=== PATIENT | female | born 1950 | race Caucasian/White ===

== ENCOUNTER 2018-12-08 12:52 | Emergency (ER) | payer MEDICARE, MEDICAID ==
[2018-12-08] MEDS ORDERED: Lidocaine 1% 10 ML MDV INJECT ONE (13:03)
--- NOTE | 2018-12-08 13:08 | EDM.PDOC ---
ED HPI GENERAL MEDICAL PROBLEM - General Chief Complaint: Laceration Stated Complaint: L RONQUILLO LAC Time Seen by Provider: 12/08/18 13:03 Source of Information: Reports: Patient History Limitations: Reports: No Limitations - History of Present Illness INITIAL COMMENTS - FREE TEXT/NARRATIVE: 68-year-old female presents to the ED with a deep flap laceration to the anterior aspect of her lower left anterior tib-fib. He states this occurred within the last hour while she was in a wheelchair and hit something metal in the parking lot at [facility]. She believes her tetanus toxoid is up-to-date at any rate she refused an update of tetanus toxoid. He is not diabetic. She can walk on it and is no evidence of bony injury. Onset: Today Onset Date: 12/08/18 Onset Time: 12:20 Duration: Minutes: Location: Reports: Lower Extremity, Left Quality: Reports: Ache (Distal anterior tib-fib.) Severity: Moderate Improves with: Reports: None Worsens with: Reports: Movement (Pain is made slightly worse by walking.) Context: Reports: Trauma (Blunt trauma on something sharp that caused a laceration to skin overlying the lt tib-fib.). 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) (None.) Left Lower Leg Pain Score (Numeric/FACES): 2 - Related Data Allergies Allergy/AdvReac Type Severity Reaction Status Date / Time No Known Allergies Allergy Verified 12/08/18 13:02 Home Meds: Home Meds Acetaminophen [Tylenol Arthritis Pain] 650 mg PO Q4HR PRN 09/02/15 [History] Furosemide 1 tab PO DAILY 09/02/15 [History] Lisinopril 10 mg PO DAILY 09/02/15 [History] Potassium Chloride 10 meq PO DAILY 09/02/15 [History] Acetaminophen/oxyCODONE [Percocet 325-5 MG] 2 tab PO Q4H PRN #60 tablet [Rx] Aspirin [Ecotrin] 325 mg PO BID tab.ec 09/07/15 [Rx] Cyclobenzaprine [Flexeril] 10 mg PO TID PRN #40 tablet 09/07/15 [Rx] Docusate Sodium [Colace] 100 mg PO BID cap 09/07/15 [Rx] Famotidine [Pepcid] 20 mg PO Q12H tablet 09/07/15 [Rx] Multivitamins,Therapeutic [Thera] 1 each PO WITHBREAKFAST tablet 09/07/15 [Rx] oxyCODONE 5 mg PO Q6H PRN #40 tablet 09/07/15 [Rx] Past Medical History HEENT History: Reports: Impaired Vision Other HEENT History: has dentures, wears glasses occassionally Cardiovascular History: Reports: Hypertension Other Cardiovascular History: peripheral edema 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: Musculoskeletal History: Reports: Arthritis, Back Pain, Chronic Other Musculoskeletal History: bilateral knee pain, plantar fascitis - Infectious Disease History Infectious Disease History: Reports: Chicken Pox - Past Surgical History HEENT Surgical History: Reports: Tonsillectomy Female Surgical History: Reports: D&C Other Surgical History Comment: R TKA today Social & Family History - Family History HEENT: Reports: Cataract, Macular Degeneration Other HEENT Family History: mother Cardiac: Reports: Afib, Aneurysm Other Cardiac Family History: mother A-fib, father Anuerysm Respiratory: Reports: COPD Other Respiratory Family Hisory: mother GI: Reports: None OBGYN: Reports: None Musculoskeletal: Reports: Arthritis Other Musculoskeletal Family History: mother Neurological: Reports: CVA Other Neurological Family History: father and brother Psychiatric: Reports: Depression Other Psychiatric Family History: daughter - Living Situation & Occupation Living situation: Reports: with Family ED ROS GENERAL - Review of Systems Review Of Systems: See Below Constitutional: Reports: No Symptoms HEENT: Reports: No Symptoms Respiratory: Reports: No Symptoms Cardiovascular: Reports: Blood Pressure Problem Endocrine: Reports: Fatigue GI/Abdominal: Reports: Other (GERD under good control with Pepcid.) : Reports: Frequency Musculoskeletal: Reports: Back Pain, Other (Arthritis involving neck knees hips and sometimes shoulders.) Skin: Reports: Bruising (Bruises fairly easily. Is on aspirin daily.) Neurological: Reports: No Symptoms Psychiatric: Reports: No Symptoms Hematologic/Lymphatic: Reports: No Symptoms Immunologic: Reports: No Symptoms ED EXAM, SKIN/RASH Exam: See Below Exam Limited By: No Limitations General Appearance: Alert, WD/WN, Mild Distress Eye Exam: Bilateral Eye: Normal Inspection Peripheral Pulses: 1+: Posterior Tibial (L), Posterior Tibial (R), Dorsalis Pedis (L), Dorsalis Pedis (R) Extremities: Other (Has a 5 cm laceration distal aspect left lower leg overlying the tib-fib just above the ankle crease. She has full range of motion of the ankle in terms of dorsiflexion.) Neurological: Alert, Oriented ( Mild active bleeding appreciated), CN II-XII Intact, Normal Cognition Psychiatric: Normal Affect, Normal Mood Skin: Warm, Dry, Intact, Normal Color, No Rash Location, Skin: Lower Extremity, Left (Laceration distal left tib-fib--flap laceration approximately 5 cm in length.) Associated features: Tenderness ED SKIN PROCEDURES - Laceration/Wound Repair Left Lower Anterior Distal Leg Lac/Wound length In cm: 5 Appearance: Subcutaneous, Clean Distal NVT: Neuro & Vascular Intact Anesthetic Type: Local Local Anesthesia - Lidocaine (Xylocaine): 1% Plain Local Anesthetic Volume: Other (18 mL) Skin Prep: Saline Exploration/Debridement/Repair: Wound Explored Closed with: Sutures Suture Size: 3-0 # of Sutures: 10 Suture Type: Nylon, Interrupted, Simple Course - Vital Signs Last Recorded V/S: Last Vital Signs Temp 36.7 C 12/08/18 13:08 Pulse 120 H 12/08/18 13:08 Resp 18 12/08/18 13:08 BP 200/100 H 12/08/18 13:08 Pulse Ox 92 L 12/08/18 13:08 - Orders/Labs/Meds Meds: Medications Discontinued Medications Generic Name Dose Route Start Last Admin Trade Name Damion PRN Reason Stop Dose Admin Lidocaine HCl 20 ml 12/08/18 13:03 12/08/18 13:14 Xylocaine 1% INJECT 12/08/18 13:04 20 ml ONETIME ONE Administration - Radiology Interpretation Free Text/Narrative:: 60-year-old female presents the ED with a deep 5 cm flap laceration to the distal aspect of her anterior tib-fib on the left side. She states she was bumped into well in the parking lot at [facility] and part of the wheelchair gouged her across the anterior leg causing a deep flap laceration. She believes her tetanus toxoid is up-to-date at any rate she refused an update. Wound was cleansed and then sutured under local anesthetic with 3-0 Ethilon 10 sutures. Sutures will be need to be removed in 10 days' time. Departure - Departure Time of Disposition: 13:31 Disposition: Home, Self-Care Condition: Fair Clinical Impression: Laceration of leg excluding thigh Qualifiers: Encounter type: initial encounter Laterality: left Qualified Code(s): S81.812A - Laceration without foreign body, left lower leg, initial encounter - Discharge Information *PRESCRIPTION DRUG MONITORING PROGRAM REVIEWED*: Not Applicable *COPY OF PRESCRIPTION DRUG MONITORING REPORT IN PATIENT DEON: Not Applicable Instructions: Laceration Care, Adult Referrals: PCP,None [Primary Care Provider] - Forms: ED Department Discharge Additional Instructions: Evaluation the emergency room today in regards to a 5 cm laceration to the distal aspect of your lower leg just above the ankle crease. This occurred from a sharp part of a wheelchair. Wound was cleansed and then sutured 10 with 3-0 Ethilon sutures. Wound is to be cleansed daily with soap and water. Showering is okay. Wound should not be soaked under water however until the sutures are removed. Apply topical antibiotic such as bacitracin or Polysporin once daily to the wound and cover with bandage to keep clean. Sutures are to be removed in 10-12 days time. May use Tylenol or Motrin for pain relief as needed. May elevate the leg is much as possible today and apply ice pack for 20 minutes out of every 3 hours to reduce swelling. Report to medical care if any signs of infection develop such as redness, increased swelling, increased pain, or obvious pus.
[2018-12-08 13:11] VITALS: BP 200/100
== END 2018-12-08 13:46 | disposition home or self-care (01) ==
LOC: JD.ED 12:52
DX: S81.812A Laceration without foreign body, left lower leg, initial encounter (principal); I10 Essential (primary) hypertension; M19.90 Unspecified osteoarthritis, unspecified site; Z79.82 Long term (current) use of aspirin; Z79.899 Other long term (current) drug therapy; Z98.890 Other specified postprocedural states; W26.8XXA Contact with other sharp object(s), not elsewhere classified, initial encounter
CPT/HCPCS: 12002; 99282; J2001

== ENCOUNTER 2019-01-08 06:16 | Inpatient (IN) | payer MEDICARE, MEDICAID ==
[~2019-01-08 06:16] MED LIST: Acetaminophen 325 MG Tab PO SCH; Lactated Ringers 1,000 ML IV SCH; Lidocaine 1%/Sod Bicarbonate in NS 8.4% 1 ML Syringe IDERM PRN; Pregabalin 25 MG Cap PO SCH; Sodium Chloride 0.9% 10 ML Syringe FLUSH PRN; oxyCODONE ER 10 MG TAB.ER PO SCH
[2019-01-08] MEDS ORDERED: Morphine 8 MG, EPINEPHrine 0.3 MG, Cefuroxime 750 MG, Ketorolac 30 MG, Sodium Chloride ... ONE ×15 (06:35→07:15)
[2019-01-08] MEDS ORDERED: Ketorolac 15 MG/ML SDV IVPUSH PRN (06:35)
[2019-01-08] MEDS ORDERED: Ondansetron 4 MG/2 ML SDV IVPUSH PRN (06:37)
[2019-01-08] MEDS ORDERED: Naloxone 0.4 MG/ML SDV IVPUSH PRN (06:37)
[2019-01-08] MEDS ORDERED: Bisacodyl 5 MG Tab PO PRN (06:37)
[2019-01-08] MEDS ORDERED: Magnesium Hydroxide 400 MG/5 ML Susp 30 ML Cup PO PRN (06:37)
[2019-01-08] MEDS ORDERED: Sennosides 8.6 MG Tab PO PRN (06:37)
[2019-01-08] MEDS ORDERED: Morphine 2 MG/ML Syringe IVPUSH PRN (06:37)
[2019-01-08] MEDS ORDERED: fentaNYL 100 MCG/2 ML SDV ONE ×3 (06:44→10:06)
[2019-01-08] MEDS ORDERED: Famotidine 20 MG Tab PO SCH (06:45)
[2019-01-08] MEDS ORDERED: Midazolam 1 MG/ML 2 ML SDV ONE ×2 (06:45→09:25)
[2019-01-08] MEDS ORDERED: Albuterol/Ipratropium 3.0-0.5 MG/3 ML Neb Soln NEB STA (06:53)
[2019-01-08] MEDS ORDERED: Ondansetron 4 MG/2 ML SDV IVPUSH ONE (06:55)
[2019-01-08] MEDS ORDERED: Albuterol/Ipratropium 3.0-0.5 MG/3 ML Neb Soln ONE ×2 (06:58→10:24)
[2019-01-08] MEDS ORDERED: ceFAZolin 1 GM Vial ONE ×3 (07:01→07:14)
[2019-01-08] MEDS ORDERED: Vancomycin 1 GM SDV ONE (07:01)
[2019-01-08] MEDS ORDERED: Bupivacaine 0.25% 30 ML SDV ONE (07:01)
[2019-01-08] MEDS ORDERED: Iodine/Sodium Iodide 2% Tincture 30 ML Bottle ONE (07:01)
--- NOTE | 2019-01-08 07:06 | PCM.PREANE ---
Preanesthetic Assessment - Anesthesia/Transfusion/Family Hx Anesthesia History: Prior Anesthesia Without Reaction Family History of Anesthesia Reaction: No Transfusion History: Prior Transfusion Reaction Intubation History: Unknown - Review of Systems General: No Symptoms Pulmonary: Shortness of Breath, Wheezing Cardiovascular: No Symptoms Gastrointestinal: No Symptoms Neurological: No Symptoms Other: Reports: None - Physical Assessment NPO Status Date: 01/07/19 NPO Status Time: 10:30 Blood Pressure: 180/90 Height: 1.7 m Weight: 127.006 kg ASA Class: 3 Mental Status: Alert & Oriented x3 Airway Class: Mallampati = 3 Dentition: Reports: Dentures ROM/Head Extension: Limited/Partial Lungs: Decreased Breath Sounds, Wheezing Cardiovascular: Regular Rate, Regular Rhythm - Allergies Allergies/Adverse Reactions: Allergies Allergy/AdvReac Type Severity Reaction Status Date / Time bee venom protein (honey bee) Allergy Dizziness Verified 01/07/19 11:07 - Acknowledgements Anesthesia Type Planned: Spinal Pt an Appropriate Candidate for the Planned Anesthesia: Yes Alternatives and Risks of Anesthesia Discussed w Pt/Guardian: Yes Pt/Guardian Understands and Agrees with Anesthesia Plan: Yes Additional Comments: Discussed GA LMA if spinalunsuccessful with Dr. 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: Musculoskeletal History: Reports: Arthritis, Back Pain, Chronic Other Musculoskeletal History: bilateral knee pain, plantar fascitis Neurological History: Reports: None Psychiatric History: Reports: None Endocrine/Metabolic History: Reports: Obesity/BMI 30+ Hematologic History: Reports: None Immunologic History: Reports: None Oncologic (Cancer) History: Reports: None Dermatologic History: Reports: None - Infectious Disease History Infectious Disease History: Reports: Chicken Pox - Past Surgical History Head Surgeries/Procedures: Reports: None HEENT Surgical History: Reports: Cataract Surgery, Tonsillectomy Cardiovascular Surgical History: Reports: None Respiratory Surgical History: Reports: None GI Surgical History: Reports: None Female Surgical History: Reports: D&C Male Surgical History: Reports: None Endocrine Surgical History: Reports: None Neurological Surgical History: Reports: None Musculoskeletal Surgical History: Reports: Knee Replacement Oncologic Surgical History: Reports: None Dermatological Surgical History: Reports: None - SUBSTANCE USE Smoking Status *Q: Current Every Day Smoker Recreational Drug Use History: No - HOME MEDS Home Medications: Home Meds Potassium Chloride 10 meq PO DAILY 09/02/15 [History] Acetaminophen [Tylenol Arthritis Pain] 650 mg PO BEDTIME 01/07/19 [History] Aspirin 81 mg PO DAILY 01/07/19 [History] Cholecalciferol (Vitamin D3) [Vitamin D3] 5,000 unit PO DAILY 01/07/19 [History] Cyclobenzaprine [Flexeril] 10 mg PO Q8H PRN 01/07/19 [History] Hydrochlorothiazide/Losartan [Hyzaar 50-12.5 MG] 1 tab PO DAILY 01/07/19 [ History] Hydrocodone/Acetaminophen [Hydrocodon-Acetaminophn 10-325] 1 tab PO Q8H PRN [History] Losartan/Hydrochlorothiazide [Losartan-HCTZ 50-12.5 MG] 1 tab PO DAILY 01/07/19 [History] Rosuvastatin Calcium 10 mg PO DAILY 01/07/19 [History] Vitamin B Complex 1 cap PO DAILY 01/07/19 [History] - CURRENT (IN HOUSE) MEDS Current Meds: Current Medications Acetaminophen (Tylenol) 975 mg PO ONETIME [place] Stop: 01/08/19 18:00 Hydrocodone Bitart/Acetaminophen ([place] 325-5 Mg) 1 - 2 tab PO Q4H PRN PRN Reason: Pain Bisacodyl (Dulcolax) 5 mg PO DAILY PRN PRN Reason: Constipation Morphine Sulfate 8 mg/Epinephrine HCl 0.3 mg/Cefuroxime Sodium 750 mg/Ketorolac Tromethamine 30 mg/Sodium Chloride 27.9 ml 0 mg .XX ONETIME ONE Stop: 01/08/19 06:36 Cyclobenzaprine HCl (Flexeril) 10 mg PO BID PRN PRN Reason: Spasms Docusate Sodium (Colace) 100 mg PO BID [place] Famotidine (Pepcid) 20 mg PO Q12H [place] Lactated Ringer's (Ringers, Lactated) 1,000 mls @ 125 mls/hr IV ASDIRECTED [place] Stop: 01/08/19 23:00 Cefazolin Sodium/Dextrose 2 gm (/ Premix) 50 mls @ 100 mls/hr IV Q8H [place] Stop: 01/08/19 23:14 Ketorolac Tromethamine (Toradol) 15 mg IVPUSH Q6H PRN PRN Reason: Pain Lidocaine/Sodium Bicarbonate (Buffered Lidocaine 1% In Ns 8.4%) 0.25 ml IDERM ONETIME PRN PRN Reason: Prior to IV Start Stop: 01/08/19 18:00 Magnesium Hydroxide (Milk Of Magnesia) 30 ml PO BID PRN PRN Reason: Constipation Morphine Sulfate (Morphine) 2 mg IVPUSH Q2H PRN PRN Reason: Breakthrough Pain Naloxone HCl (Narcan) 0.1 mg IVPUSH Q5M PRN PRN Reason: Oversedation Ondansetron HCl (Zofran) 4 mg IVPUSH ONETIME ONE Stop: 01/08/19 06:56 Ondansetron HCl (Zofran) 4 mg IVPUSH Q6H PRN PRN Reason: Nausea/Vomiting Oxycodone HCl (Oxycontin) 10 mg PO ONETIME [place] Stop: 01/08/19 18:00 Pregabalin (Lyrica) 50 mg PO ONETIME [place] Stop: 01/08/19 16:00 Rivaroxaban (Xarelto) 10 mg PO DAILY [facility] Senna (Senna) 8.6 mg PO BID PRN PRN Reason: Constipation Sodium Chloride (Saline Flush) 10 ml FLUSH ASDIRECTED PRN PRN Reason: Keep Vein Open Stop: 01/08/19 18:00 Discontinued Medications Albuterol/Ipratropium (Duoneb 3.0-0.5 Mg/3 Ml) 3 ml NEB ONETIME STA Stop: 01/08/19 06:54 Last Admin: 01/08/19 07:02 Dose: 3 ml Albuterol/Ipratropium (Duoneb 3.0-0.5 Mg/3 Ml) Confirm Administered Dose 3 ml .ROUTE .STK-MED ONE Stop: 01/08/19 06:59 Bupivacaine HCl (Marcaine 0.25%) Confirm Administered Dose 30 ml .ROUTE .STK- MED ONE Stop: 01/08/19 07:02 Cefazolin Sodium (Ancef) Confirm Administered Dose 2 gm .ROUTE .STK-MED ONE Stop: 01/08/19 07:02 Fentanyl (Sublimaze) Confirm Administered Dose 100 mcg .ROUTE .STK-MED ONE Stop: 01/08/19 06:45 Iodine (Iodine 2% Mild Tincture) Confirm Administered Dose 30 ml .ROUTE .STK- MED ONE Stop: 01/08/19 07:02 Midazolam HCl (Versed 1 Mg/Ml) Confirm Administered Dose 2 mg .ROUTE .STK-MED ONE Stop: 01/08/19 06:46 Tranexamic Acid (Cyklokapron) Confirm Administered Dose 1,000 mg .ROUTE .STK- MED ONE Stop: 01/08/19 07:01 Vancomycin HCl (Vancomycin) Confirm Administered Dose 1 gm .ROUTE .STK-MED ONE Stop: 01/08/19 07:02
--- NOTE | 2019-01-08 07:16 | PCM.PREANE ---
Preanesthetic Assessment - Anesthesia/Transfusion/Family Hx Anesthesia History: Prior Anesthesia Without Reaction Family History of Anesthesia Reaction: No Transfusion History: Prior Transfusion Without Reaction Intubation History: Unknown - Review of Systems General: No Symptoms Pulmonary: Shortness of Breath, Wheezing Cardiovascular: No Symptoms Gastrointestinal: No Symptoms Neurological: No Symptoms Other: Reports: None - Physical Assessment NPO Status Date: 01/07/19 NPO Status Time: 10:30 Blood Pressure: 180/90 Height: 1.73 m Weight: 116.12 kg ASA Class: 3 Mental Status: Alert & Oriented x3 Airway Class: Mallampati = 3 Dentition: Reports: Dentures Lungs: Decreased Breath Sounds, Wheezing Cardiovascular: Regular Rate, Regular Rhythm, No Murmurs - Allergies Allergies/Adverse Reactions: Allergies Allergy/AdvReac Type Severity Reaction Status Date / Time bee venom protein (honey bee) Allergy Dizziness Verified 01/07/19 11:07 - Acknowledgements Anesthesia Type Planned: Spinal Pt an Appropriate Candidate for the Planned Anesthesia: Yes Alternatives and Risks of Anesthesia Discussed w Pt/Guardian: Yes Pt/Guardian Understands and Agrees with Anesthesia Plan: Yes PreAnesthesia Questionnaire HEENT History: Reports: Impaired Vision Other HEENT History: has dentures, wears glasses occassionally Cardiovascular History: Reports: High Cholesterol, Hypertension Other Cardiovascular History: peripheral edema Respiratory History: Reports: SOB Gastrointestinal History: Reports: None 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: Musculoskeletal History: Reports: Arthritis, Back Pain, Chronic Other Musculoskeletal History: bilateral knee pain, plantar fascitis Neurological History: Reports: None Psychiatric History: Reports: None Endocrine/Metabolic History: Reports: Obesity/BMI 30+ Hematologic History: Reports: None Immunologic History: Reports: None Oncologic (Cancer) History: Reports: None Dermatologic History: Reports: None - Infectious Disease History Infectious Disease History: Reports: Chicken Pox - Past Surgical History Head Surgeries/Procedures: Reports: None HEENT Surgical History: Reports: Cataract Surgery, Tonsillectomy Cardiovascular Surgical History: Reports: None Respiratory Surgical History: Reports: None GI Surgical History: Reports: None Female Surgical History: Reports: D&C Male Surgical History: Reports: None Endocrine Surgical History: Reports: None Neurological Surgical History: Reports: None Musculoskeletal Surgical History: Reports: Knee Replacement Oncologic Surgical History: Reports: None Dermatological Surgical History: Reports: None - SUBSTANCE USE Smoking Status *Q: Current Every Day Smoker Recreational Drug Use History: No - HOME MEDS Home Medications: Home Meds Potassium Chloride 10 meq PO DAILY 09/02/15 [History] Acetaminophen [Tylenol Arthritis Pain] 650 mg PO BEDTIME 01/07/19 [History] Aspirin 81 mg PO DAILY 01/07/19 [History] Cholecalciferol (Vitamin D3) [Vitamin D3] 5,000 unit PO DAILY 01/07/19 [History] Cyclobenzaprine [Flexeril] 10 mg PO Q8H PRN 01/07/19 [History] Hydrochlorothiazide/Losartan [Hyzaar 50-12.5 MG] 1 tab PO DAILY 01/07/19 [ History] Hydrocodone/Acetaminophen [Hydrocodon-Acetaminophn 10-325] 1 tab PO Q8H PRN [History] Losartan/Hydrochlorothiazide [Losartan-HCTZ 50-12.5 MG] 1 tab PO DAILY 01/07/19 [History] Rosuvastatin Calcium 10 mg PO DAILY 01/07/19 [History] Vitamin B Complex 1 cap PO DAILY 01/07/19 [History] - CURRENT (IN HOUSE) MEDS Current Meds: Current Medications Acetaminophen (Tylenol) 975 mg PO ONETIME [place] Stop: 01/08/19 18:00 Hydrocodone Bitart/Acetaminophen ([place] 325-5 Mg) 1 - 2 tab PO Q4H PRN PRN Reason: Pain Albuterol/Ipratropium (Duoneb 3.0-0.5 Mg/3 Ml) 3 ml NEB ONETIME STA Stop: 01/08/19 06:54 Bisacodyl (Dulcolax) 5 mg PO DAILY PRN PRN Reason: Constipation Morphine Sulfate 8 mg/Epinephrine HCl 0.3 mg/Cefuroxime Sodium 750 mg/Ketorolac Tromethamine 30 mg/Sodium Chloride 27.9 ml 0 mg .XX ONETIME ONE Stop: 01/08/19 06:36 Cyclobenzaprine HCl (Flexeril) 10 mg PO BID PRN PRN Reason: Spasms Docusate Sodium (Colace) 100 mg PO BID [place] Famotidine (Pepcid) 20 mg PO Q12H [place] Lactated Ringer's (Ringers, Lactated) 1,000 mls @ 125 mls/hr IV ASDIRECTED [place] Stop: 01/08/19 23:00 Cefazolin Sodium/Dextrose 2 gm (/ Premix) 50 mls @ 100 mls/hr IV Q8H [facility] Stop: 01/08/19 23:14 Ketorolac Tromethamine (Toradol) 15 mg IVPUSH Q6H PRN PRN Reason: Pain Lidocaine/Sodium Bicarbonate (Buffered Lidocaine 1% In Ns 8.4%) 0.25 ml IDERM ONETIME PRN PRN Reason: Prior to IV Start Stop: 01/08/19 18:00 Magnesium Hydroxide (Milk Of Magnesia) 30 ml PO BID PRN PRN Reason: Constipation Morphine Sulfate (Morphine) 2 mg IVPUSH Q2H PRN PRN Reason: Breakthrough Pain Naloxone HCl (Narcan) 0.1 mg IVPUSH Q5M PRN PRN Reason: Oversedation Ondansetron HCl (Zofran) 4 mg IVPUSH ONETIME ONE Stop: 01/08/19 06:56 Ondansetron HCl (Zofran) 4 mg IVPUSH Q6H PRN PRN Reason: Nausea/Vomiting Oxycodone HCl (Oxycontin) 10 mg PO ONETIME [facility] Stop: 01/08/19 18:00 Pregabalin (Lyrica) 50 mg PO ONETIME [place] Stop: 01/08/19 16:00 Rivaroxaban (Xarelto) 10 mg PO DAILY [facility] Senna (Senna) 8.6 mg PO BID PRN PRN Reason: Constipation Sodium Chloride (Saline Flush) 10 ml FLUSH ASDIRECTED PRN PRN Reason: Keep Vein Open Stop: 01/08/19 18:00 Discontinued Medications Fentanyl (Sublimaze) Confirm Administered Dose 100 mcg .ROUTE .STK-MED ONE Stop: 01/08/19 06:45 Midazolam HCl (Versed 1 Mg/Ml) Confirm Administered Dose 2 mg .ROUTE .STK-MED ONE Stop: 01/08/19 06:46
[2019-01-08] MEDS ORDERED: Propofol 200 MG/20 ML SDV ONE (07:32)
[2019-01-08] MEDS ORDERED: Rocuronium 50 MG/5 ML Vial ONE (07:46)
[2019-01-08] MEDS ORDERED: Lactated Ringers 1,000 ML ONE (07:54)
[2019-01-08] MEDS ORDERED: HYDROmorphone 0.5 MG/0.5 ML Syringe ONE ×4 (08:08→08:32)
[2019-01-08] MEDS ORDERED: Ketorolac 15 MG/ML SDV ONE (08:49)
[2019-01-08] MEDS ORDERED: Dexamethasone 4 MG/ML SDV ONE (08:51)
[2019-01-08] MEDS ORDERED: EPINEPHrine 1 MG/ML SDV ONE (09:31)
[2019-01-08] MEDS ORDERED: Ropivacaine 0.5% 5 MG/ML 30 ML SDV ONE (09:31)
--- NOTE | 2019-01-08 09:43 | PCM.POSTAN ---
POST ANESTHESIA ASSESSMENT - MENTAL STATUS Mental Status: Alert - RESPIRATORY Respiratory Status: Respiratory Rate WNL, Airway Patent, O2 Saturation Stable, Supplemental Oxygen - CARDIOVASCULAR CV Status: Pulse Rate WNL, Blood Pressure Stable - GASTROINTESTINAL GI Status: No Symptoms - POST OP HYDRATION Hydration Status: Adequate & Stable
--- NOTE | 2019-01-08 10:04 | PCM.SN ---
- Free Text/Narrative Note: Left selective femoral nerve block at the adductor canal for post-procedure pain control under US guidance requested by Dr. Rae. Time Out: 940 Start: 944 End: 955 Chart reviewed. Consent signed. Questions answered. Appropriate monitors applied. Time out performed. Left mid-shaft femur identified with ultrasound, scanning medially of femur, the femoral artery in the adductor canal visualized , and the femoral nerve located laterally to the artery. The skin was prepped lateral to the ultrasound probe with chlorahexadine times two. Lidocaine 1% local was injected. The 21ga 4 insulated block needle was inserted under direct ultrasound guidance into the adductor canal. 25mL of 0.5% ropivacaine with 1:200,000 epinephrine was injected circumferentially around the nerve with intermittent negative aspiration noted. Blood noted times 1 on aspiration. Needle redirected. No further blood noted. Patient tolerated the procedure well. Sterile technique noted along with sterile gloves, mask, and sterile probe cover. See picture on progress note and vital signs on nurses notes. Block completed in PACU. Kahty Rossi CRNA
[2019-01-08] MEDS ORDERED: Albuterol/Ipratropium 3.0-0.5 MG/3 ML Neb Soln NEB ONE (10:22)
[2019-01-08] MEDS ORDERED: Albuterol/Ipratropium 3.0-0.5 MG/3 ML Neb Soln NEB PRN (11:51)
--- NOTE | 2019-01-08 12:29 | CR ---
Left knee: AP and lateral views of left knee were obtained utilizing portable technique. Comparison: No prior left knee exam. Knee prosthesis is seen. Components are aligned. Underlying bony structures are intact. 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 Air is noted within the soft tissues compatible with surgical procedure. Pressure: 1. Recently placed left knee prosthesis. Nothing acute is otherwise seen. Diagnostic code #2
--- NOTE | 2019-01-08 12:39 | PCM.CONS ---
H&P History of Present Illness - General Date of Service: 01/08/19 Admit Problem/Dx: Admission Diagnosis/Problem Admission Diagnosis/Problem Osteoarthritis of knee Source of Information: Patient, Old Records, Provider, RN, RN Notes Reviewed History Limitations: Reports: No Limitations - History of Present Illness Initial Comments - Free Text/Narative: Gloria Quach is a 68 yo female patient of Dr. Rae who is post-operative day 0 of left TKA. Hospital medicine was consulted for post-operative medical care of the following listed medical conditions. At this time she is resting comfortably in bed. Pain is controlled. She denies any chest pain, shortness of breath, palpitations, nausea, or vomiting. She carries a history of: impaired vision, HDL, HTN, periphreal edema, arthritis, chronic back pain, obesity hyperglycemia, second degree polycythemia, osteopenia. She is a current daily smoker. She is a full code. Her primary care provider is Sadie Gillette NP. Back Pain Score (Numeric/FACES): 3 - Related Data Allergies/Adverse Reactions: Allergies Allergy/AdvReac Type Severity Reaction Status Date / Time bee venom protein (honey bee) Allergy Dizziness Verified 01/08/19 07:21 Home Medications: Home Meds Potassium Chloride 10 meq PO DAILY 09/02/15 [History] Acetaminophen [Tylenol Arthritis Pain] 650 mg PO BEDTIME 01/07/19 [History] Aspirin 81 mg PO DAILY 01/07/19 [History] Cholecalciferol (Vitamin D3) [Vitamin D3] 5,000 unit PO DAILY 01/07/19 [History] Cyclobenzaprine [Flexeril] 10 mg PO Q8H PRN 01/07/19 [History] Hydrochlorothiazide/Losartan [Hyzaar 50-12.5 MG] 1 tab PO DAILY 01/07/19 [ History] Hydrocodone/Acetaminophen [Hydrocodon-Acetaminophn 10-325] 1 tab PO Q8H PRN [History] Losartan/Hydrochlorothiazide [Losartan-HCTZ 50-12.5 MG] 1 tab PO DAILY 01/07/19 [History] Rosuvastatin Calcium 10 mg PO DAILY 01/07/19 [History] Vitamin B Complex 1 cap PO DAILY 01/07/19 [History] Past Medical History HEENT History: Reports: Impaired Vision Other HEENT History: has dentures, wears glasses occassionally Cardiovascular History: Reports: High Cholesterol, Hypertension Other Cardiovascular History: peripheral edema Respiratory History: Reports: SOB Gastrointestinal History: Reports: None APPEALS EXAMINER History: Reports: Musculoskeletal History: Reports: Arthritis, Back Pain, Chronic Other Musculoskeletal History: bilateral knee pain, plantar fascitis Neurological History: Reports: None Psychiatric History: Reports: None Endocrine/Metabolic History: Reports: Obesity/BMI 30+ Hematologic History: Reports: None Immunologic History: Reports: None Oncologic (Cancer) History: Reports: None Dermatologic History: Reports: None - Infectious Disease History Infectious Disease History: Reports: Chicken Pox - Past Surgical History Head Surgeries/Procedures: Reports: None HEENT Surgical History: Reports: Cataract Surgery, Tonsillectomy Cardiovascular Surgical History: Reports: None Respiratory Surgical History: Reports: None GI Surgical History: Reports: None Female Surgical History: Reports: D&C Male Surgical History: Reports: None Endocrine Surgical History: Reports: None Neurological Surgical History: Reports: None Musculoskeletal Surgical History: Reports: Knee Replacement Oncologic Surgical History: Reports: None Dermatological Surgical History: Reports: None Social & Family History - Family History HEENT: Reports: Cataract, Macular Degeneration Other HEENT Family History: mother Cardiac: Reports: Afib, Aneurysm Other Cardiac Family History: mother A-fib, father Anuerysm Respiratory: Reports: COPD Other Respiratory Family Hisory: mother GI: Reports: None OBGYN: Reports: None Musculoskeletal: Reports: Arthritis Other Musculoskeletal Family History: mother Neurological: Reports: CVA Other Neurological Family History: father and brother Psychiatric: Reports: Depression Other Psychiatric Family History: daughter - Tobacco Use Smoking Status *Q: Current Every Day Smoker Years of Tobacco use: 50 Packs/Tins Daily: 1 - Caffeine Use Caffeine Use: Reports: Coffee - Recreational Drug Use Recreational Drug Use: No Drug Use in Last 12 Months: No - Living Situation & Occupation Living situation: Reports: with Family H&P Review of Systems - Review of Systems: Review Of Systems: See Below General: Reports: No Symptoms. Denies: Fever, Chills HEENT: Reports: No Symptoms. Denies: Headaches, Sore Throat Pulmonary: Reports: Shortness of Breath, Wheezing. Denies: Cough, Sputum Cardiovascular: Reports: No Symptoms. Denies: Chest Pain, Palpitations Gastrointestinal: Reports: No Symptoms. Denies: Abdominal Pain, Constipation, Distension, Nausea, Vomiting Genitourinary: Reports: No Symptoms. Denies: Pain Musculoskeletal: Reports: Leg Pain Skin: Reports: No Symptoms. Denies: Cyanosis Psychiatric: Reports: No Symptoms. Denies: Confusion Neurological: Reports: No Symptoms. Denies: Pre-Existing Deficit Hematologic/Lymphatic: Reports: No Symptoms Immunologic: Reports: No Symptoms Exam - Exam Exam: See Below - Vital Signs Vital Signs: Last Vital Signs Temp 97.9 F 01/08/19 10:29 Pulse 89 01/08/19 12:02 Resp 12 01/08/19 10:44 BP 136/61 01/08/19 12:02 Pulse Ox 93 L 01/08/19 12:02 Weight: 256 lb - Exam Quality Assessment: Supplemental Oxygen, DVT Prophylaxis General: Alert, Oriented, Cooperative HEENT: Conjunctiva Clear, EACs Clear, EOMI, Hearing Intact, Mucosa Moist & [place] , Nares Patent, Posterior Pharynx Clear, PERRLA Neck: Supple, Trachea Midline Lungs: Clear to Auscultation, Normal Respiratory Effort, Decreased Breath Sounds Cardiovascular: Regular Rate, Regular Rhythm GI/Abdominal Exam: Normal Bowel Sounds, Soft, Non-Tender, No Distention, No Abnormal Bruit (Female) Exam: Deferred Rectal (Female) Exam: Deferred Back Exam: Normal Inspection, Full Range of Motion Extremities: Normal Capillary Refill, Leg Pain, Limited Range of Motion, Other ( Bandage in place on left leg. Bandage is dry and intact. Cooling pack in place. ) Peripheral Pulses: 3+: Radial (L), Radial (R), Dorsalis Pedis (L), Dorsalis Pedis (R) Skin: Warm, Dry, Intact Neurological: Cranial Nerves Intact (Grossly ) Neuro Extensive - Mental Status: Alert, Oriented x3 Consult PN Assessment/Plan POD#: 0 Procedures: Procedures COMPLETE CBC W/AUTO DIFF WBC (09/05/15) COMPREHEN METABOLIC PANEL (09/05/15) DXA BONE DENSITY AXIAL (12/24/18) ELECTROCARDIOGRAM TRACING (12/24/18) EMERGENCY DEPT VISIT (12/08/18) GAIT TRAINING THERAPY (09/05/15) MANUAL THERAPY 1/> REGIONS (09/05/15) MEASURE BLOOD OXYGEN LEVEL (09/05/15) MR-STAPH DNA AMP PROBE (09/05/15) OT EVALUATION (09/05/15) PROTHROMBIN TIME (09/05/15) PT EVALUATION (09/05/15) ROUTINE VENIPUNCTURE (09/05/15) RPR S/N/AX/GEN/TRNK2.6-7.5CM (12/08/18) SELF CARE MNGMENT TRAINING (09/05/15) THERAPEUTIC ACTIVITIES (09/05/15) THERAPEUTIC EXERCISES (09/05/15) X-RAY EXAM CHEST 2 VIEWS (12/24/18) X-RAY EXAM OF KNEE 1 OR 2 (09/05/15) (1) S/P total knee arthroplasty SNOMED Code(s): 5957873988559, 913745208, 9747350876715 Code(s): Z96.659 - PRESENCE OF UNSPECIFIED ARTIFICIAL KNEE JOINT Priority: High Current Visit: Yes Qualifiers: Laterality: left Qualified Code(s): Z96.652 - Presence of left artificial knee joint (2) Osteoarthritis SNOMED Code(s): 329563549 Code(s): M19.90 - UNSPECIFIED OSTEOARTHRITIS, UNSPECIFIED SITE Priority: High Current Visit: Yes Qualifiers: Osteoarthritis location: knee Osteoarthritis type: primary Laterality: left Qualified Code(s): M17.12 - Unilateral primary osteoarthritis, left knee (3) HLD (hyperlipidemia) SNOMED Code(s): 41935216 Code(s): E78.5 - HYPERLIPIDEMIA, UNSPECIFIED Priority: Low Current Visit : No Qualifiers: Hyperlipidemia type: unspecified Qualified Code(s): E78.5 - Hyperlipidemia , unspecified (4) HTN (hypertension) SNOMED Code(s): 16995114 Code(s): I10 - ESSENTIAL (PRIMARY) HYPERTENSION Priority: Medium Current Visit: No Qualifiers: Hypertension type: unspecified Qualified Code(s): I10 - Essential (primary ) hypertension (5) Peripheral edema SNOMED Code(s): 682800687 Code(s): R60.9 - EDEMA, UNSPECIFIED Priority: Low Current Visit: No (6) Chronic back pain SNOMED Code(s): 281381184 Code(s): M54.9 - DORSALGIA, UNSPECIFIED; G89.29 - OTHER CHRONIC PAIN Priority: Low Current Visit: No Qualifiers: Back pain location: back pain in unspecified location Back pain laterality : unspecified Qualified Code(s): M54.9 - Dorsalgia, unspecified; G89.29 - Other chronic pain (7) Obesity (BMI 30-39.9) SNOMED Code(s): 438639329, 636196462 Code(s): E66.9 - OBESITY, UNSPECIFIED Priority: Low Current Visit: No Problem List Initiated/Reviewed/Updated: Yes My Orders Last 24 Hours: My Active Orders 01/08/19 11:51 Albuterol/Ipratropium [DuoNeb 3.0-0.5 MG/3 ML] 3 ml NEB Q4HRRT PRN 01/08/19 11:52 RT Aerosol Therapy [RC] ASDIRECTED 01/08/19 12:36 Consult to Respiratory Therapy [Respiratory Care Assess and Treatment] [CONS] Routine Plan: I/P: Acute: S/P left total knee arthroplasty - post-operative day 0 -DVT prophylaxis and pain management per primary care team -PT/OT -IS/RT -Monitor oxygen saturation -Titrate oxygen as needed -Home medications reviewed -Vital signs stable -Monitor labs -Pre-operative Hgb was 16.5 -Pre-operative GFR was >60 -Pre-operative A1C is 6.1% Osteoarthritis of left knee -Pain management per primary care team Chronic tobacco use -Report less than 1 PPD daily cigarette use -Nicotine patch as ordered - patient refusing thus far -Cessation counseling Chronic: impaired vision HDL HTN periphreal edema arthritis chronic back pain obesity hyperglycemia second degree polycythemia osteopenia Plan: CM for discharge planning GI prophylaxis Home medications as indicated Other orders as listed above Routine AM labs She is a full code. Her PCP is Sadie Gillette NP Thank you for allowing us to participate in the care of this patient!! Requesting Provider: Dr. Rae Date Consult Requested: 01/08/19 Patient History Reviewed: Yes Admission H&P Reviewed: Yes Time Spent (in minutes): 45
[2019-01-08] MEDS: Acetaminophen/HYDROcodone 325-5 MG Tab PO PRN ×2 (13:19→21:09)
[2019-01-08] MEDS ORDERED: Nicotine 14 MG/24 Hr Patch TRDERM SCH (13:30)
[2019-01-08] MEDS: ceFAZolin 2 GM in Premix Bag 1 BAG IV SCH (14:56)
[2019-01-08] MEDS: ceFAZolin 1 GM in Premix Bag 1 BAG IV SCH (14:56)
[2019-01-08] MEDS ORDERED: Aluminum Hydroxide/Magnesium Hydroxide/Simethicone Susp 30 ML Cup PO PRN (18:03)
[2019-01-08] MEDS: Cyclobenzaprine 10 MG Tab PO PRN (18:37)
[2019-01-08] MEDS: Docusate Sodium 100 MG Cap PO SCH (20:53)
[2019-01-08] MEDS: Famotidine 20 MG Tab PO SCH (20:53)
[2019-01-09] MEDS: ceFAZolin 2 GM in Premix Bag 1 BAG IV SCH ×2 (00:54→06:48)
[2019-01-09] MEDS: ceFAZolin 1 GM in Premix Bag 1 BAG IV SCH ×2 (00:54→06:48)
[2019-01-09] MEDS: Acetaminophen/HYDROcodone 325-5 MG Tab PO PRN ×2 (05:35→09:42)
[2019-01-09] MEDS: Cyclobenzaprine 10 MG Tab PO PRN ×2 (05:35→12:15)
--- NOTE | 2019-01-09 06:34 | PCM.CONSN ---
- General Info Date of Service: 01/09/19 Admission Dx/Problem (Free Text): Admission Diagnosis/Problem Admission Diagnosis/Problem Osteoarthritis of knee Subjective Update: In to see Gloria. She is doing well. She has worked with PT and OT is in the room working with her. No nursing or patient concerns. Labs and vital signs look good. Functional Status: Reports: Pain Controlled, Tolerating Diet, Ambulating, Urinating, Incentive Spirometry. Denies: New Symptoms - Review of Systems General: Reports: No Symptoms. Denies: Fever, Chills HEENT: Reports: No Symptoms. Denies: Headaches, Sore Throat Pulmonary: Reports: No Symptoms. Denies: Shortness of Breath, Pleuritic Chest Pain, Cough, Sputum, Wheezing Cardiovascular: Reports: No Symptoms. Denies: Chest Pain, Palpitations Gastrointestinal: Reports: No Symptoms. Denies: Abdominal Pain, Constipation, Diarrhea, Nausea, Vomiting Genitourinary: Reports: No Symptoms. Denies: Pain Musculoskeletal: Reports: Leg Pain Skin: Reports: No Symptoms. Denies: Cyanosis Neurological: Reports: No Symptoms. Denies: Confusion Psychiatric: Reports: No Symptoms - Patient Data Vitals - Most Recent: Last Vital Signs Temp 98.1 F 01/09/19 05:34 Pulse 94 01/09/19 05:34 Resp 18 01/09/19 05:34 BP 150/80 H 01/09/19 04:00 Pulse Ox 98 01/09/19 05:34 Weight - Most Recent: 266 lb 4 oz I&O - Last 24 Hours: Intake & Output 01/08/19 01/08/19 01/09/19 14:59 22:59 06:59 Intake Total 150 500 400 Output Total 200 Balance 150 300 400 Lab Results Last 24 Hours: Laboratory Results - last 24 hr 01/09/19 01/09/19 Range/Units 05:00 05:00 WBC 12.69 H (3.98-10.04) K/mm3 RBC 4.62 (3.98-5.22) M/mm3 Hgb 14.0 (11.2-15.7) gm/L Hct 42.7 (34.1-44.9) % MCV 92.4 (79.4-94.8) fl MCH 30.3 (25.6-32.2) pg MCHC 32.8 (32.2-35.5) g/dl RDW Std Deviation 44.3 (36.4-46.3) fL Plt Count 211 (182-369) K/mm3 MPV 11.8 (9.4-12.3) fl Sodium 137 (136-145) mEq/L Potassium 4.1 (3.5-5.1) mEq/L Chloride 101 (98-107) mEq/L Carbon Dioxide 28 (21-32) mEq/L Anion Gap 12.1 (5-15) BUN 22 H (7-18) mg/dL Creatinine 1.0 (0.55-1.02) mg/dL Est Cr Clr Drug Dosing 54.32 mL/min Estimated GFR (MDRD) 55 (>60) mL/min BUN/Creatinine Ratio 22.0 H (14-18) Glucose 146 H (80-115) mg/dL Calcium 8.7 (8.5-10.1) mg/dL Total Bilirubin 0.4 (0.2-1.0) mg/dL AST 19 (15-37) U/L ALT 22 (14-59) U/L Alkaline Phosphatase 113 (46-116) U/L Total Protein 6.3 L (6.4-8.2) g/dl Albumin 3.3 L (3.4-5.0) g/dl Globulin 3.0 gm/dL Albumin/Globulin Ratio 1.1 (1-2) Med Orders - Current: Current Medications Hydrocodone Bitart/Acetaminophen ([place] 325-5 Mg) 1 - 2 tab PO Q4H PRN PRN Reason: Pain Last Admin: 01/09/19 05:35 Dose: 2 tab Al Hydroxide/Mg Hydroxide (Mag-Al Plus) 30 ml PO Q4H PRN PRN Reason: Heartburn Last Admin: 01/08/19 18:37 Dose: 30 ml Albuterol/Ipratropium (Duoneb 3.0-0.5 Mg/3 Ml) 3 ml NEB Q4HRRT PRN PRN Reason: Shortness of Breath Bisacodyl (Dulcolax) 5 mg PO DAILY PRN PRN Reason: Constipation Cyclobenzaprine HCl (Flexeril) 10 mg PO BID PRN PRN Reason: Spasms Last Admin: 01/09/19 05:35 Dose: 10 mg Docusate Sodium (Colace) 100 mg PO BID [facility] Last Admin: 01/08/19 20:53 Dose: Not Given Famotidine (Pepcid) 20 mg PO Q12H [facility] Last Admin: 01/08/19 20:53 Dose: Not Given Cefazolin Sodium/Dextrose 2 gm (/ Premix) 50 mls @ 100 mls/hr IV Q8H [facility] Stop: 01/09/19 07:59 Last Admin: 01/09/19 00:54 Dose: 100 mls/hr Cefazolin Sodium/Dextrose 1 gm (/ Premix) 50 mls @ 100 mls/hr IV Q8H [facility] Stop: 01/09/19 07:59 Last Admin: 01/09/19 00:54 Dose: 100 mls/hr Ketorolac Tromethamine (Toradol) 15 mg IVPUSH Q6H PRN PRN Reason: Pain Magnesium Hydroxide (Milk Of Magnesia) 30 ml PO BID PRN PRN Reason: Constipation Miscellaneous Information (Remove Patch) 1 ea TRDERM Q24H [facility] Morphine Sulfate (Morphine) 2 mg IVPUSH Q2H PRN PRN Reason: Breakthrough Pain Naloxone HCl (Narcan) 0.1 mg IVPUSH Q5M PRN PRN Reason: Oversedation Nicotine (Habitrol) 14 mg TRDERM Q24H [facility] Last Admin: 01/08/19 13:45 Dose: Not Given Ondansetron HCl (Zofran) 4 mg IVPUSH Q6H PRN PRN Reason: Nausea/Vomiting Rivaroxaban (Xarelto) 10 mg PO DAILY [facility] Senna (Senna) 8.6 mg PO BID PRN PRN Reason: Constipation Discontinued Medications Acetaminophen (Tylenol) 975 mg PO ONETIME [facility] Stop: 01/08/19 18:00 Last Admin: 01/08/19 07:10 Dose: 975 mg Albuterol/Ipratropium (Duoneb 3.0-0.5 Mg/3 Ml) 3 ml NEB ONETIME [facility] Stop: 01/08/19 06:54 Last Admin: 01/08/19 07:02 Dose: 3 ml Albuterol/Ipratropium (Duoneb 3.0-0.5 Mg/3 Ml) Confirm Administered Dose 3 ml .ROUTE .STK-MED ONE Stop: 01/08/19 06:59 Last Admin: 01/08/19 10:23 Dose: Not Given Albuterol/Ipratropium (Duoneb 3.0-0.5 Mg/3 Ml) 3 ml NEB ONETIME ONE Stop: 01/08/19 10:23 Last Admin: 01/08/19 10:27 Dose: 3 ml Albuterol/Ipratropium (Duoneb 3.0-0.5 Mg/3 Ml) Confirm Administered Dose 3 ml .ROUTE .STK-MED ONE Stop: 01/08/19 10:25 Last Admin: 01/08/19 10:28 Dose: Not Given Bupivacaine HCl (Marcaine 0.25%) Confirm Administered Dose 30 ml .ROUTE .STK- MED ONE Stop: 01/08/19 07:02 Last Admin: 01/08/19 08:49 Dose: 30 ml Cefazolin Sodium (Ancef) Confirm Administered Dose 2 gm .ROUTE .STK-MED ONE Stop: 01/08/19 07:02 Last Admin: 01/08/19 08:46 Dose: 2 gm Cefazolin Sodium (Ancef) Confirm Administered Dose 1 gm .ROUTE .STK-MED ONE Stop: 01/08/19 07:15 Cefazolin Sodium (Ancef) Confirm Administered Dose 1 gm .ROUTE .STK-MED ONE Stop: 01/08/19 07:15 Morphine Sulfate 8 mg/Epinephrine HCl 0.3 mg/Cefuroxime Sodium 750 mg/Ketorolac Tromethamine 30 mg/Sodium Chloride 27.9 ml 0 mg .XX ONETIME ONE Stop: 01/08/19 06:36 Last Admin: 01/08/19 08:49 Dose: 788.3 mg Morphine Sulfate 8 mg/Epinephrine HCl 0.3 mg/Cefuroxime Sodium 750 mg/Ketorolac Tromethamine 30 mg/Sodium Chloride 27.9 ml 0 mg .XX ONETIME ONE Stop: 01/08/19 07:16 Last Admin: 01/08/19 12:25 Dose: Not Given Morphine Sulfate 8 mg/Epinephrine HCl 0.3 mg/Cefuroxime Sodium 750 mg/Ketorolac Tromethamine 30 mg/Sodium Chloride 27.9 ml 0 mg .XX ONETIME ONE Stop: 01/08/19 07:16 Dexamethasone (Dexamethasone) Confirm Administered Dose 4 mg .ROUTE .STK-MED ONE Stop: 01/08/19 08:52 Epinephrine HCl (Adrenalin) Confirm Administered Dose 1 mg .ROUTE .STK-MED ONE Stop: 01/08/19 09:32 Famotidine (Pepcid) 20 mg PO Q12H [facility] Last Admin: 01/08/19 12:27 Dose: Not Given Fentanyl (Sublimaze) Confirm Administered Dose 100 mcg .ROUTE .STK-MED ONE Stop: 01/08/19 06:45 Fentanyl (Sublimaze) Confirm Administered Dose 100 mcg .ROUTE .ST-MED ONE Stop: 01/08/19 07:45 Fentanyl (Sublimaze) Confirm Administered Dose 100 mcg .ROUTE .STK-MED ONE Stop: 01/08/19 10:07 Last Admin: 01/08/19 10:10 Dose: 50 mcg Hydromorphone HCl (Dilaudid) Confirm Administered Dose 0.5 mg .ROUTE .ST-MED ONE Stop: 01/08/19 08:09 Hydromorphone HCl (Dilaudid) Confirm Administered Dose 0.5 mg .ROUTE .STK-MED ONE Stop: 01/08/19 08:09 Hydromorphone HCl (Dilaudid) Confirm Administered Dose 0.5 mg .ROUTE .STK-MED ONE Stop: 01/08/19 08:33 Hydromorphone HCl (Dilaudid) Confirm Administered Dose 0.5 mg .ROUTE .STK-MED ONE Stop: 01/08/19 08:33 Lactated Ringer's (Ringers, Lactated) 1,000 mls @ 125 mls/hr IV ASDIRECTED [facility] Stop: 01/08/19 23:00 Last Admin: 01/08/19 07:05 Dose: 125 mls/hr Lactated Ringer's (Ringers, Lactated) Confirm Administered Dose 1,000 mls @ as directed .ROUTE .ST-MED ONE Stop: 01/08/19 07:55 Iodine (Iodine 2% Mild Tincture) Confirm Administered Dose 30 ml .ROUTE .STK- MED ONE Stop: 01/08/19 07:02 Last Admin: 01/08/19 08:44 Dose: 18 ml Ketorolac Tromethamine (Toradol) Confirm Administered Dose 15 mg .ROUTE .STK- MED ONE Stop: 01/08/19 08:50 Lidocaine/Sodium Bicarbonate (Buffered Lidocaine 1% In Ns 8.4%) 0.25 ml IDERM ONETIME PRN PRN Reason: Prior to IV Start Stop: 01/08/19 18:00 Last Admin: 01/08/19 07:05 Dose: 0.25 ml Midazolam HCl (Versed 1 Mg/Ml) Confirm Administered Dose 2 mg .ROUTE .STK-MED ONE Stop: 01/08/19 06:46 Midazolam HCl (Versed 1 Mg/Ml) Confirm Administered Dose 2 mg .ROUTE .[facility]-MED ONE Stop: 01/08/19 09:26 Ondansetron HCl (Zofran) 4 mg IVPUSH ONETIME ONE Stop: 01/08/19 06:56 Last Admin: 01/08/19 07:15 Dose: 4 mg Oxycodone HCl (Oxycontin) 10 mg PO ONETIME [facility] Stop: 01/08/19 18:00 Last Admin: 01/08/19 07:10 Dose: 10 mg Pregabalin (Lyrica) 50 mg PO ONETIME [facility] Stop: 01/08/19 16:00 Last Admin: 01/08/19 07:10 Dose: 50 mg Propofol (Diprivan 20 Ml) Confirm Administered Dose 200 mg .ROUTE .ST-MED ONE Stop: 01/08/19 07:33 Rivaroxaban (Xarelto) 10 mg PO DAILY [place] Rocuronium [place] (Zemuron) Confirm Administered Dose 50 mg .ROUTE .ST-MED ONE Stop: 01/08/19 07:47 Ropivacaine (Naropin 0.5%) Confirm Administered Dose 30 ml .ROUTE .ST-MED ONE Stop: 01/08/19 09:32 Sodium Chloride (Saline Flush) 10 ml FLUSH ASDIRECTED PRN PRN Reason: Keep Vein Open Stop: 01/08/19 18:00 Tranexamic Acid (Cyklokapron) Confirm Administered Dose 1,000 mg .ROUTE .STK- MED ONE Stop: 01/08/19 07:01 Last Admin: 01/08/19 09:05 Dose: 1,000 mg Vancomycin HCl (Vancomycin) Confirm Administered Dose 1 gm .ROUTE .ST-MED ONE Stop: 01/08/19 07:02 Last Admin: 01/08/19 08:53 Dose: 1 gm - Exam Quality Assessment: DVT Prophylaxis. No: Supplemental Oxygen General: Alert, Oriented, Cooperative, No Acute Distress HEENT: Pupils Equal, Pupils Reactive, EOMI, Mucous Membr. Moist/[place] Neck: Supple, Trachea Midline, No JVD Lungs: Normal Respiratory Effort, Decreased Breath Sounds, Wheezing (mild - patient reports this is her baseline ) Cardiovascular: Regular Rate, Regular Rhythm GI/Abdominal Exam: Normal Bowel Sounds, Soft, Non-Tender, No Distention, No Abnormal Bruit (Female) Exam: Deferred Back Exam: Normal Inspection, Full Range of Motion Extremities: Normal Capillary Refill, Leg Pain, Limited Range of Motion, Other ( Bandage in place on left leg. Cooling pack in place. ) Peripheral Pulses: 2+: Dorsalis Pedis (L), Dorsalis Pedis (R), 3+: Radial (L), Radial (R) Skin: Warm, Dry, Intact Neurological: No New Focal Deficit Psy/Mental Status: Alert, Normal Affect, Normal Mood Consult PN Assessment/Plan POD#: 1 Procedures: Procedures COMPLETE CBC W/AUTO DIFF WBC (09/05/15) COMPREHEN METABOLIC PANEL (09/05/15) DXA BONE DENSITY AXIAL (12/24/18) ELECTROCARDIOGRAM TRACING (12/24/18) EMERGENCY DEPT VISIT (12/08/18) GAIT TRAINING THERAPY (09/05/15) MANUAL THERAPY 1/> REGIONS (09/05/15) MEASURE BLOOD OXYGEN LEVEL (09/05/15) MR-STAPH DNA AMP PROBE (09/05/15) OT EVALUATION (09/05/15) PROTHROMBIN TIME (09/05/15) PT EVALUATION (09/05/15) ROUTINE VENIPUNCTURE (09/05/15) RPR S/N/AX/GEN/TRNK2.6-7.5CM (12/08/18) SELF CARE MNGMENT TRAINING (09/05/15) THERAPEUTIC ACTIVITIES (09/05/15) THERAPEUTIC EXERCISES (09/05/15) X-RAY EXAM CHEST 2 VIEWS (12/24/18) X-RAY EXAM OF KNEE 1 OR 2 (09/05/15) (1) S/P total knee arthroplasty SNOMED Code(s): 6608027881330, 823486101, 0487175826658 Code(s): Z96.659 - PRESENCE OF UNSPECIFIED ARTIFICIAL KNEE JOINT Priority: High Current Visit: Yes Qualifiers: Laterality: left Qualified Code(s): Z96.652 - Presence of left artificial knee joint (2) Osteoarthritis SNOMED Code(s): 089933776 Code(s): M19.90 - UNSPECIFIED OSTEOARTHRITIS, UNSPECIFIED SITE Priority: High Current Visit: Yes Qualifiers: Osteoarthritis location: knee Osteoarthritis type: primary Laterality: left Qualified Code(s): M17.12 - Unilateral primary osteoarthritis, left knee (3) HLD (hyperlipidemia) SNOMED Code(s): 87229596 Code(s): E78.5 - HYPERLIPIDEMIA, UNSPECIFIED Priority: Low Current Visit : No Qualifiers: Hyperlipidemia type: unspecified Qualified Code(s): E78.5 - Hyperlipidemia , unspecified (4) HTN (hypertension) SNOMED Code(s): 99750046 Code(s): I10 - ESSENTIAL (PRIMARY) HYPERTENSION Priority: Medium Current Visit: No Qualifiers: Hypertension type: unspecified Qualified Code(s): I10 - Essential (primary ) hypertension (5) Peripheral edema SNOMED Code(s): 616775930 Code(s): R60.9 - EDEMA, UNSPECIFIED Priority: Low Current Visit: No (6) Chronic back pain SNOMED Code(s): 067655528 Code(s): M54.9 - DORSALGIA, UNSPECIFIED; G89.29 - OTHER CHRONIC PAIN Priority: Low Current Visit: No Qualifiers: Back pain location: back pain in unspecified location Back pain laterality : unspecified Qualified Code(s): M54.9 - Dorsalgia, unspecified; G89.29 - Other chronic pain (7) Obesity (BMI 30-39.9) SNOMED Code(s): 077249521, 823876265 Code(s): E66.9 - OBESITY, UNSPECIFIED Priority: Low Current Visit: No Problem List Initiated/Reviewed/Updated: Yes My Orders Last 24 Hours: My Active Orders 01/08/19 11:51 Albuterol/Ipratropium [DuoNeb 3.0-0.5 MG/3 ML] 3 ml NEB Q4HRRT PRN 01/08/19 11:52 RT Aerosol Therapy [RC] ASDIRECTED 01/08/19 12:36 Consult to Respiratory Therapy [Respiratory Care Assess and Treatment] [CONS] Routine 01/08/19 13:30 Nicotine [Habitrol] 14 mg TRDERM Q24H 01/08/19 16:26 Patient Status [ADT] Routine 01/09/19 13:30 Remove Patch 1 ea TRDERM Q24H Plan: I/P: Acute: S/P left total knee arthroplasty - post-operative day 1 -DVT prophylaxis and pain management per primary care team -PT/OT -IS/RT -Monitor oxygen saturation -Titrate oxygen as needed -Home medications reviewed -Vital signs stable -Monitor labs -Pre-operative Hgb was 16.5; Now 14.0 -Pre-operative GFR was >60; Now 55 -Pre-operative A1C is 6.1% Osteoarthritis of left knee -Pain management per primary care team Chronic tobacco use -Report less than 1 PPD daily cigarette use -Nicotine patch as ordered - patient refusing thus far -Cessation counseling Chronic: impaired vision HDL HTN periphreal edema arthritis chronic back pain obesity hyperglycemia second degree polycythemia osteopenia Plan: CM for discharge planning GI prophylaxis Home medications as indicated Other orders as listed above Routine AM labs She is a full code. Her PCP is Sadie Gillette NP Overall from a hospitalist standpoint Gloria is doing well. She has been up ambulating and working with PT/OT. No nursing or patient concerns. Labs and vital signs remain stable. She has been eating and has urinated. She has been refusing nicotine patches and is refusing them on discharge. We discussed smoking cessation and resources such as [facility] and her PCP. Pain has been controlled. She will be cleared for discharge pending primary team and PT/OT agreement. Thank you for allowing us to participate in the care of this patient!!
[2019-01-09] MEDS ORDERED: Rivaroxaban 10 MG Tab PO SCH ×2 (09:00)
[2019-01-09] MEDS: Docusate Sodium 100 MG Cap PO SCH (09:42)
[2019-01-09] MEDS: Famotidine 20 MG Tab PO SCH (09:43)
[2019-01-09 10:57] VITALS: BP 160/80
--- NOTE | 2019-01-09 10:57 | PCM48HPAN ---
Post Anesthesia Note - EVALUATION WITHIN 48HRS OF ANESTHETIC Vital Signs in Normal Range: Yes Patient Participated in Evaluation: Yes Respiratory Function Stable: Yes Airway Patent: Yes Cardiovascular Function Stable: Yes Hydration Status Stable: Yes Pain Control Satisfactory: Yes Nausea and Vomiting Control Satisfactory: Yes Mental Status Recovered: Yes (doing well- some muscle pain- knee more painful today) Pulse Rate: 94 Resp Rate: 18 Temperature: 98.1 F Blood Pressure: 160/80
--- NOTE | 2019-01-10 11:08 | PCM.SURGPN ---
- General Info Date of Service: 01/09/19 POD#: 1 Functional Status: Reports: Pain Controlled, Tolerating Diet, Ambulating, Urinating, Incentive Spirometry, Other (The pt states she feels prepared for discharge to home with family.) - Patient Data Vitals - Most Recent: Last Vital Signs Temp 98.1 F 01/09/19 10:57 Pulse 94 01/09/19 10:57 Resp 18 01/09/19 10:57 BP 160/80 H 01/09/19 10:57 Pulse Ox 98 01/09/19 05:34 Weight - Most Recent: 266 lb 4 oz Med Orders - Current: Current Medications Discontinued Medications Acetaminophen (Tylenol) 975 mg PO ONETIME [facility] Stop: 01/08/19 18:00 Last Admin: 01/08/19 07:10 Dose: 975 mg Hydrocodone Bitart/Acetaminophen ([place] 325-5 Mg) 1 - 2 tab PO Q4H PRN PRN Reason: Pain Last Admin: 01/09/19 09:42 Dose: 2 tab Al Hydroxide/Mg Hydroxide (Mag-Al Plus) 30 ml PO Q4H PRN PRN Reason: Heartburn Last Admin: 01/08/19 18:37 Dose: 30 ml Albuterol/Ipratropium (Duoneb 3.0-0.5 Mg/3 Ml) 3 ml NEB ONETIME [facility] Stop: 01/08/19 06:54 Last Admin: 01/08/19 07:02 Dose: 3 ml Albuterol/Ipratropium (Duoneb 3.0-0.5 Mg/3 Ml) Confirm Administered Dose 3 ml .ROUTE .STK-MED ONE Stop: 01/08/19 06:59 Last Admin: 01/08/19 10:23 Dose: Not Given Albuterol/Ipratropium (Duoneb 3.0-0.5 Mg/3 Ml) 3 ml NEB ONETIME ONE Stop: 01/08/19 10:23 Last Admin: 01/08/19 10:27 Dose: 3 ml Albuterol/Ipratropium (Duoneb 3.0-0.5 Mg/3 Ml) Confirm Administered Dose 3 ml .ROUTE .STK-MED ONE Stop: 01/08/19 10:25 Last Admin: 01/08/19 10:28 Dose: Not Given Albuterol/Ipratropium (Duoneb 3.0-0.5 Mg/3 Ml) 3 ml NEB Q4HRRT PRN PRN Reason: Shortness of Breath Bisacodyl (Dulcolax) 5 mg PO DAILY PRN PRN Reason: Constipation Bupivacaine HCl (Marc[place] 0.25%) Confirm Administered Dose 30 ml .ROUTE .STK- MED ONE Stop: 01/08/19 07:02 Last Admin: 01/08/19 08:49 Dose: 30 ml Cefazolin Sodium (Ancef) Confirm Administered Dose 2 gm .ROUTE .STK-MED ONE Stop: 01/08/19 07:02 Last Admin: 01/08/19 08:46 Dose: 2 gm Cefazolin Sodium (Ancef) Confirm Administered Dose 1 gm .ROUTE .STK-MED ONE Stop: 01/08/19 07:15 Cefazolin Sodium (Ancef) Confirm Administered Dose 1 gm .ROUTE .STK-MED ONE Stop: 01/08/19 07:15 Morphine Sulfate 8 mg/Epinephrine HCl 0.3 mg/Cefuroxime Sodium 750 mg/Ketorolac Tromethamine 30 mg/Sodium Chloride 27.9 ml 0 mg .XX ONETIME ONE Stop: 01/08/19 06:36 Last Admin: 01/08/19 08:49 Dose: 788.3 mg Morphine Sulfate 8 mg/Epinephrine HCl 0.3 mg/Cefuroxime Sodium 750 mg/Ketorolac Tromethamine 30 mg/Sodium Chloride 27.9 ml 0 mg .XX ONETIME ONE Stop: 01/08/19 07:16 Last Admin: 01/08/19 12:25 Dose: Not Given Morphine Sulfate 8 mg/Epinephrine HCl 0.3 mg/Cefuroxime Sodium 750 mg/Ketorolac Tromethamine 30 mg/Sodium Chloride 27.9 ml 0 mg .XX ONETIME ONE Stop: 01/08/19 07:16 Cyclobenzaprine HCl (Flexeril) 10 mg PO BID PRN PRN Reason: Spasms Last Admin: 01/09/19 12:15 Dose: 10 mg Dexamethasone (Dexamethasone) Confirm Administered Dose 4 mg .ROUTE .STK-MED ONE Stop: 01/08/19 08:52 Docusate Sodium (Colace) 100 mg PO BID [place] Last Admin: 01/09/19 09:42 Dose: Not Given Epinephrine HCl (Adrenalin) Confirm Administered Dose 1 mg .ROUTE .STK-MED ONE Stop: 01/08/19 09:32 Famotidine (Pepcid) 20 mg PO Q12H [facility] Last Admin: 01/08/19 12:27 Dose: Not Given Famotidine (Pepcid) 20 mg PO Q12H [facility] Last Admin: 01/09/19 09:43 Dose: Not Given Fentanyl (Sublimaze) Confirm Administered Dose 100 mcg .ROUTE .STK-MED ONE Stop: 01/08/19 06:45 Fentanyl (Sublimaze) Confirm Administered Dose 100 mcg .ROUTE .STK-MED ONE Stop: 01/08/19 07:45 Fentanyl (Sublimaze) Confirm Administered Dose 100 mcg .ROUTE .STK-MED ONE Stop: 01/08/19 10:07 Last Admin: 01/08/19 10:10 Dose: 50 mcg Hydromorphone HCl (Dilaudid) Confirm Administered Dose 0.5 mg .ROUTE .STK-MED ONE Stop: 01/08/19 08:09 Hydromorphone HCl (Dilaudid) Confirm Administered Dose 0.5 mg .ROUTE .STK-MED ONE Stop: 01/08/19 08:09 Hydromorphone HCl (Dilaudid) Confirm Administered Dose 0.5 mg .ROUTE .STK-MED ONE Stop: 01/08/19 08:33 Hydromorphone HCl (Dilaudid) Confirm Administered Dose 0.5 mg .ROUTE .STK-MED ONE Stop: 01/08/19 08:33 Lactated Ringer's (Ringers, Lactated) 1,000 mls @ 125 mls/hr IV ASDIRECTED [facility] Stop: 01/08/19 23:00 Last Admin: 01/08/19 07:05 Dose: 125 mls/hr Cefazolin Sodium/Dextrose 2 gm (/ Premix) 50 mls @ 100 mls/hr IV Q8H [facility] Stop: 01/09/19 07:59 Last Admin: 01/09/19 06:48 Dose: 100 mls/hr Cefazolin Sodium/Dextrose 1 gm (/ Premix) 50 mls @ 100 mls/hr IV Q8H [facility] Stop: 01/09/19 07:59 Last Admin: 01/09/19 06:48 Dose: 100 mls/hr Lactated Ringer's (Ringers, Lactated) Confirm Administered Dose 1,000 mls @ as directed .ROUTE .STK-MED ONE Stop: 01/08/19 07:55 Iodine (Iodine 2% Mild Tincture) Confirm Administered Dose 30 ml .ROUTE .STK- MED ONE Stop: 01/08/19 07:02 Last Admin: 01/08/19 08:44 Dose: 18 ml Ketorolac Tromethamine (Toradol) 15 mg IVPUSH Q6H PRN PRN Reason: Pain Ketorolac Tromethamine (Toradol) Confirm Administered Dose 15 mg .ROUTE .STK- MED ONE Stop: 01/08/19 08:50 Lidocaine/Sodium Bicarbonate (Buffered Lidocaine 1% In Ns 8.4%) 0.25 ml IDERM ONETIME PRN PRN Reason: Prior to IV Start Stop: 01/08/19 18:00 Last Admin: 01/08/19 07:05 Dose: 0.25 ml Magnesium Hydroxide (Milk Of Magnesia) 30 ml PO BID PRN PRN Reason: Constipation Midazolam HCl (Versed 1 Mg/Ml) Confirm Administered Dose 2 mg .ROUTE .STK-MED ONE Stop: 01/08/19 06:46 Midazolam HCl (Versed 1 Mg/Ml) Confirm Administered Dose 2 mg .ROUTE .STK-MED ONE Stop: 01/08/19 09:26 Miscellaneous Information (Remove Patch) 1 ea TRDERM Q24H [facility] Morphine Sulfate (Morphine) 2 mg IVPUSH Q2H PRN PRN Reason: Breakthrough Pain Naloxone HCl (Narcan) 0.1 mg IVPUSH Q5M PRN PRN Reason: Oversedation Nicotine (Habitrol) 14 mg TRDERM Q24H [facility] Last Admin: 01/08/19 13:45 Dose: Not Given Ondansetron HCl (Zofran) 4 mg IVPUSH ONETIME ONE Stop: 01/08/19 06:56 Last Admin: 01/08/19 07:15 Dose: 4 mg Ondansetron HCl (Zofran) 4 mg IVPUSH Q6H PRN PRN Reason: Nausea/Vomiting Oxycodone HCl (Oxycontin) 10 mg PO ONETIME [facility] Stop: 01/08/19 18:00 Last Admin: 01/08/19 07:10 Dose: 10 mg Pregabalin (Lyrica) 50 mg PO ONETIME [facility] Stop: 01/08/19 16:00 Last Admin: 01/08/19 07:10 Dose: 50 mg Propofol (Diprivan 20 Ml) Confirm Administered Dose 200 mg .ROUTE .STK-MED ONE Stop: 01/08/19 07:33 Rivaroxaban (Xarelto) 10 mg PO DAILY [facility] Rivaroxaban (Xarelto) 10 mg PO DAILY [facility] Last Admin: 01/09/19 09:43 Dose: Not Given Rocuronium [place] (Zemuron) Confirm Administered Dose 50 mg .ROUTE .STK-MED ONE Stop: 01/08/19 07:47 Ropivacaine (Naropin 0.5%) Confirm Administered Dose 30 ml .ROUTE .STK-MED ONE Stop: 01/08/19 09:32 Senna (Senna) 8.6 mg PO BID PRN PRN Reason: Constipation Sodium Chloride (Saline Flush) 10 ml FLUSH ASDIRECTED PRN PRN Reason: Keep Vein Open Stop: 01/08/19 18:00 Tranexamic Acid (Cyklokapron) Confirm Administered Dose 1,000 mg .ROUTE .STK- MED ONE Stop: 01/08/19 07:01 Last Admin: 01/08/19 09:05 Dose: 1,000 mg Vancomycin HCl (Vancomycin) Confirm Administered Dose 1 gm .ROUTE .STK-MED ONE Stop: 01/08/19 07:02 Last Admin: 01/08/19 08:53 Dose: 1 gm - Exam Wound/Incisions: Dressing Dry and Intact General: Alert, Cooperative, No Acute Distress Lungs: Normal Respiratory Effort Extremities: Other (NVS intact for BLE. Nano's negative.) - Problem List Review Problem List Initiated/Reviewed/Updated: Yes - Assessment Assessment (Free Text/Narrative):: POD#1 - left TKA - Plan Plan (Free Text/Narrative):: 1. Hgb 14.0. 2. Xarelto encouraged and pt adamantly refused. Pt only agreeable to 325mg ASA PO BID.. Frequent mobility, TEDs. 3. Discharge to home today. 4. Outpatient therapy. The pt was evaluated by Dr. Rae today.
--- NOTE | 2019-01-10 11:11 | PCM.DCSUM1 ---
Discharge Summary - Hospital Course Brief History: Gloria is a 68 yo female who underwent left TKA with Dr. Rae on . The procedure was completed under general anesthesia with post-op regional block. The pt tolerated the procedure well and was admitted to the Medical-Surgical Unit. The pt received Ancef denise-operatively. She participated in P.T. and O.T. and progressed well. She was allowed to WBAT and used a FWW for mobility. The pt's surgical wound was dressed with a Mepilex dressing and remained clean and dry. The pt used TEDs and SCDs. On POD#1, the pt's hemoglobin was 14.0. Medical management was provided by the Hospitalist service. On POD#1, the pt was deemed appropriate for discharge to home with family. ASA 325mg PO BID rx was provided for VTE prophylaxis as this was the only medication the pt was agreeable to. - Discharge Data Discharge Date: 01/09/19 Discharge Disposition: Home, Self-Care 01 Condition: Good - Patient Summary/Data Consults: Consultations 01/08/19 06:35 OT Evaluation and Treatment [CONS] Routine PT Evaluation and Treatment [CONS] Routine 01/08/19 12:36 Consult to Respiratory Therapy [Respiratory Care Assess and Treatment] [CONS] Routine 01/08/19 15:46 Consult to Physician [CONS] Routine - Patient Instructions Diet: Usual Diet as Tolerated Activity: Apply Ice, As Tolerated, Elevate Extremity, Full Weight Bearing Driving: Do Not Drive Showering/Bathing: May Shower Wound/Incision Care: Keep Operative Site/Wound Site Clean and Dry, Do NOT Change Dressing Notify Provider of: Fever, Increased Pain, Swelling and Redness, Drainage, Nausea and/or Vomiting Other/Special Instructions: Please get up and moving around EVERY HOUR while awake. This helps to prevent blood clots. Please use your walker and have help with mobility as needed. Take a short walk in your home every hour while awake. Please take the blood thinner medication as directed. You could use a medication like Zantac or Pepcid and a medication like Prilosec or Nexium to protect your stomach while you are using the blood thinner. At home, please complete the exercises that you learned during the Hospital stay. Schedule for physical therapy. Use the pain medication as needed. The medication may cause drowsiness and constipation. Contact your primary care provider for instructions if you are constipated. You may use a stool softener like docusate sodium or Colace 100mg twice daily and/or a laxative like Miralax daily for constipation. Increase your water and fiber intake while you are using the pain medication. Discontinue use of the pain medication as soon as able. Please do not use other medications that may cause drowsiness (other pain medications, anxiety pills, cold medications, sleeping pills, etc) while using the prescription pain medication. Do not use alcohol while using the pain medication. You may use acetaminophen or Tylenol for pain management, however, please ensure you are not using over 4000 mg or 4 grams of acetaminophen per day from all sources. Your pain medication has 325mg of acetaminophen per tablet. At this time, please do not use ibuprofen (Motrin, Advil) or naproxen (Aleve) for pain management as you are using the blood thinner. When the aspirin course is completed in 4 to 6 weeks, you could use ibuprofen or naproxen for pain management (if this is allowed by your primary care provider). Wear the GUCCI hose during the day and you may remove these at night. Elevate the limb to decrease swelling. Place ice to the area often. Place a towel between your skin and the blue pad. Use the incentive spirometer often. Take deep breaths throughout the day. Please keep the dressing in place until follow-up. Notify the Clinic if the dressing becomes saturated. Increase your protein intake while you are healing. If you have diabetes, please closely monitor your blood sugars and notify your primary care provider with abnormal values. Elevated blood sugars increases the risk of infection. Call the Clinic with questions or concerns - [phone]. - Discharge Plan *PRESCRIPTION DRUG MONITORING PROGRAM REVIEWED*: No *COPY OF PRESCRIPTION DRUG MONITORING REPORT IN PATIENT DEON: No Prescriptions/Med Rec: Acetaminophen/HYDROcodone [[place] 325-5 MG] 1 - 2 tab PO Q4H PRN #60 tablet PRN Reason: Pain Aspirin 325 mg PO BID #84 tab Cyclobenzaprine [Flexeril] 10 mg PO TID PRN #30 tab PRN Reason: muscle spasms Home Medications: Home Meds Potassium Chloride 10 meq PO DAILY 09/02/15 [History] Acetaminophen [Tylenol Arthritis Pain] 650 mg PO BEDTIME 01/07/19 [History] Cholecalciferol (Vitamin D3) [Vitamin D3] 5,000 unit PO DAILY 01/07/19 [History] Cyclobenzaprine [Flexeril] 10 mg PO Q8H PRN 01/07/19 [History] Losartan/Hydrochlorothiazide [Losartan-HCTZ 50-12.5 MG] 1 tab PO DAILY 01/07/19 [History] Rosuvastatin Calcium 10 mg PO DAILY 01/07/19 [History] Vitamin B Complex 1 cap PO DAILY 01/07/19 [History] Acetaminophen/HYDROcodone [[place] 325-5 MG] 1 - 2 tab PO Q4H PRN #60 tablet 01/09 [Rx] Aspirin 325 mg PO BID #84 tab 01/09/19 [Rx] Bisacodyl [Dulcolax] 5 mg PO DAILY PRN tablet 01/09/19 [Rx] Cyclobenzaprine [Flexeril] 10 mg PO TID PRN #30 tab 01/09/19 [Rx] Docusate Sodium [Colace] 100 mg PO BID cap 01/09/19 [Rx] Famotidine [Pepcid] 20 mg PO Q12H tablet 01/09/19 [Rx] Magnesium Hydroxide [Milk of Magnesia] 30 ml PO BID PRN cup 01/09/19 [Rx] Nicotine [Habitrol] 14 mg TRDERM Q24H patch 01/09/19 [Rx] Remove Patch 1 ea TRDERM Q24H each 01/09/19 [Rx] Sennosides [Senna] 8.6 mg PO BID PRN tablet 01/09/19 [Rx] Patient Handouts: Incision Care, Adult, Steps to Quit Smoking Referrals: Raiza Fam PA-C [Physician [employer]] - (You have a follow up with Raiza Fam on 01/14/19 at 1100, and a second follow up on 01/23/19 at 1100.) - Discharge Summary/Plan Comment DC Time >30 min.: No - Patient Data Vitals - Most Recent: Last Vital Signs Temp 98.1 F 01/09/19 10:57 Pulse 94 01/09/19 10:57 Resp 18 01/09/19 10:57 BP 160/80 H 01/09/19 10:57 Pulse Ox 98 01/09/19 05:34 Weight - Most Recent: 266 lb 4 oz Med Orders - Current: Current Medications Discontinued Medications Acetaminophen (Tylenol) 975 mg PO ONETIME [place] Stop: 01/08/19 18:00 Last Admin: 01/08/19 07:10 Dose: 975 mg Hydrocodone Bitart/Acetaminophen ([place] 325-5 Mg) 1 - 2 tab PO Q4H PRN PRN Reason: Pain Last Admin: 01/09/19 09:42 Dose: 2 tab Al Hydroxide/Mg Hydroxide (Mag-Al Plus) 30 ml PO Q4H PRN PRN Reason: Heartburn Last Admin: 01/08/19 18:37 Dose: 30 ml Albuterol/Ipratropium (Duoneb 3.0-0.5 Mg/3 Ml) 3 ml NEB ONETIME STA Stop: 01/08/19 06:54 Last Admin: 01/08/19 07:02 Dose: 3 ml Albuterol/Ipratropium (Duoneb 3.0-0.5 Mg/3 Ml) Confirm Administered Dose 3 ml .ROUTE .STK-MED ONE Stop: 01/08/19 06:59 Last Admin: 01/08/19 10:23 Dose: Not Given Albuterol/Ipratropium (Duoneb 3.0-0.5 Mg/3 Ml) 3 ml NEB ONETIME ONE Stop: 01/08/19 10:23 Last Admin: 01/08/19 10:27 Dose: 3 ml Albuterol/Ipratropium (Duoneb 3.0-0.5 Mg/3 Ml) Confirm Administered Dose 3 ml .ROUTE .STK-MED ONE Stop: 01/08/19 10:25 Last Admin: 01/08/19 10:28 Dose: Not Given Albuterol/Ipratropium (Duoneb 3.0-0.5 Mg/3 Ml) 3 ml NEB Q4HRRT PRN PRN Reason: Shortness of Breath Bisacodyl (Dulcolax) 5 mg PO DAILY PRN PRN Reason: Constipation Bupivacaine HCl (Marcaine 0.25%) Confirm Administered Dose 30 ml .ROUTE .STK- MED ONE Stop: 01/08/19 07:02 Last Admin: 01/08/19 08:49 Dose: 30 ml Cefazolin Sodium (Ancef) Confirm Administered Dose 2 gm .ROUTE .STK-MED ONE Stop: 01/08/19 07:02 Last Admin: 01/08/19 08:46 Dose: 2 gm Cefazolin Sodium (Ancef) Confirm Administered Dose 1 gm .ROUTE .STK-MED ONE Stop: 01/08/19 07:15 Cefazolin Sodium (Ancef) Confirm Administered Dose 1 gm .ROUTE .STK-MED ONE Stop: 01/08/19 07:15 Morphine Sulfate 8 mg/Epinephrine HCl 0.3 mg/Cefuroxime Sodium 750 mg/Ketorolac Tromethamine 30 mg/Sodium Chloride 27.9 ml 0 mg .XX ONETIME ONE Stop: 01/08/19 06:36 Last Admin: 01/08/19 08:49 Dose: 788.3 mg Morphine Sulfate 8 mg/Epinephrine HCl 0.3 mg/Cefuroxime Sodium 750 mg/Ketorolac Tromethamine 30 mg/Sodium Chloride 27.9 ml 0 mg .XX ONETIME ONE Stop: 01/08/19 07:16 Last Admin: 01/08/19 12:25 Dose: Not Given Morphine Sulfate 8 mg/Epinephrine HCl 0.3 mg/Cefuroxime Sodium 750 mg/Ketorolac Tromethamine 30 mg/Sodium Chloride 27.9 ml 0 mg .XX ONETIME ONE Stop: 01/08/19 07:16 Cyclobenzaprine HCl (Flexeril) 10 mg PO BID PRN PRN Reason: Spasms Last Admin: 01/09/19 12:15 Dose: 10 mg Dexamethasone (Dexamethasone) Confirm Administered Dose 4 mg .ROUTE .STK-MED ONE Stop: 01/08/19 08:52 Docusate Sodium (Colace) 100 mg PO BID [facility] Last Admin: 01/09/19 09:42 Dose: Not Given Epinephrine HCl (Adrenalin) Confirm Administered Dose 1 mg .ROUTE .STK-MED ONE Stop: 01/08/19 09:32 Famotidine (Pepcid) 20 mg PO Q12H [facility] Last Admin: 01/08/19 12:27 Dose: Not Given Famotidine (Pepcid) 20 mg PO Q12H [facility] Last Admin: 01/09/19 09:43 Dose: Not Given Fentanyl (Sublimaze) Confirm Administered Dose 100 mcg .ROUTE .STK-MED ONE Stop: 01/08/19 06:45 Fentanyl (Sublimaze) Confirm Administered Dose 100 mcg .ROUTE .STK-MED ONE Stop: 01/08/19 07:45 Fentanyl (Sublimaze) Confirm Administered Dose 100 mcg .ROUTE .STK-MED ONE Stop: 01/08/19 10:07 Last Admin: 01/08/19 10:10 Dose: 50 mcg Hydromorphone HCl (Dilaudid) Confirm Administered Dose 0.5 mg .ROUTE .STK-MED ONE Stop: 01/08/19 08:09 Hydromorphone HCl (Dilaudid) Confirm Administered Dose 0.5 mg .ROUTE .STK-MED ONE Stop: 01/08/19 08:09 Hydromorphone HCl (Dilaudid) Confirm Administered Dose 0.5 mg .ROUTE .STK-MED ONE Stop: 01/08/19 08:33 Hydromorphone HCl (Dilaudid) Confirm Administered Dose 0.5 mg .ROUTE .STK-MED ONE Stop: 01/08/19 08:33 Lactated Ringer's (Ringers, Lactated) 1,000 mls @ 125 mls/hr IV ASDIRECTED [facility] Stop: 01/08/19 23:00 Last Admin: 01/08/19 07:05 Dose: 125 mls/hr Cefazolin Sodium/Dextrose 2 gm (/ Premix) 50 mls @ 100 mls/hr IV Q8H [facility] Stop: 01/09/19 07:59 Last Admin: 01/09/19 06:48 Dose: 100 mls/hr Cefazolin Sodium/Dextrose 1 gm (/ Premix) 50 mls @ 100 mls/hr IV Q8H [facility] Stop: 01/09/19 07:59 Last Admin: 01/09/19 06:48 Dose: 100 mls/hr Lactated Ringer's (Ringers, Lactated) Confirm Administered Dose 1,000 mls @ as directed .ROUTE .STK-MED ONE Stop: 01/08/19 07:55 Iodine (Iodine 2% Mild Tincture) Confirm Administered Dose 30 ml .ROUTE .STK- MED ONE Stop: 01/08/19 07:02 Last Admin: 01/08/19 08:44 Dose: 18 ml Ketorolac Tromethamine (Toradol) 15 mg IVPUSH Q6H PRN PRN Reason: Pain Ketorolac Tromethamine (Toradol) Confirm Administered Dose 15 mg .ROUTE .STK- MED ONE Stop: 01/08/19 08:50 Lidocaine/Sodium Bicarbonate (Buffered Lidocaine 1% In Ns 8.4%) 0.25 ml IDERM ONETIME PRN PRN Reason: Prior to IV Start Stop: 01/08/19 18:00 Last Admin: 01/08/19 07:05 Dose: 0.25 ml Magnesium Hydroxide (Milk Of Magnesia) 30 ml PO BID PRN PRN Reason: Constipation Midazolam HCl (Versed 1 Mg/Ml) Confirm Administered Dose 2 mg .ROUTE .STK-MED ONE Stop: 01/08/19 06:46 Midazolam HCl (Versed 1 Mg/Ml) Confirm Administered Dose 2 mg .ROUTE .STK-MED ONE Stop: 01/08/19 09:26 Miscellaneous Information (Remove Patch) 1 ea TRDERM Q24H [facility] Morphine Sulfate (Morphine) 2 mg IVPUSH Q2H PRN PRN Reason: Breakthrough Pain Naloxone HCl (Narcan) 0.1 mg IVPUSH Q5M PRN PRN Reason: Oversedation Nicotine (Habitrol) 14 mg TRDERM Q24H [facility] Last Admin: 01/08/19 13:45 Dose: Not Given Ondansetron HCl (Zofran) 4 mg IVPUSH ONETIME ONE Stop: 01/08/19 06:56 Last Admin: 01/08/19 07:15 Dose: 4 mg Ondansetron HCl (Zofran) 4 mg IVPUSH Q6H PRN PRN Reason: Nausea/Vomiting Oxycodone HCl (Oxycontin) 10 mg PO ONETIME [facility] Stop: 01/08/19 18:00 Last Admin: 01/08/19 07:10 Dose: 10 mg Pregabalin (Lyrica) 50 mg PO ONETIME [facility] Stop: 01/08/19 16:00 Last Admin: 01/08/19 07:10 Dose: 50 mg Propofol (Diprivan 20 Ml) Confirm Administered Dose 200 mg .ROUTE .STK-MED ONE Stop: 01/08/19 07:33 Rivaroxaban (Xarelto) 10 mg PO DAILY [facility] Rivaroxaban (Xarelto) 10 mg PO DAILY [facility] Last Admin: 01/09/19 09:43 Dose: Not Given Rocuronium [place] (Zemuron) Confirm Administered Dose 50 mg .ROUTE .STK-MED ONE Stop: 01/08/19 07:47 Ropivacaine (Naropin 0.5%) Confirm Administered Dose 30 ml .ROUTE .STK-MED ONE Stop: 01/08/19 09:32 Senna (Senna) 8.6 mg PO BID PRN PRN Reason: Constipation Sodium Chloride (Saline Flush) 10 ml FLUSH ASDIRECTED PRN PRN Reason: Keep Vein Open Stop: 01/08/19 18:00 Tranexamic Acid (Cyklokapron) Confirm Administered Dose 1,000 mg .ROUTE .STK- MED ONE Stop: 01/08/19 07:01 Last Admin: 01/08/19 09:05 Dose: 1,000 mg Vancomycin HCl (Vancomycin) Confirm Administered Dose 1 gm .ROUTE .STK-MED ONE Stop: 01/08/19 07:02 Last Admin: 01/08/19 08:53 Dose: 1 gm
--- NOTE | 2019-01-12 12:22 | PCM.OPNOTE ---
- General Post-Op/Procedure Note Date of Surgery/Procedure: 01/08/19 Operative Procedure(s): left total knee arthroplasty Pre Op Diagnosis: left knee osteoarthrosis Post-Op Diagnosis: Same Anesthesia Technique: General ET Tube, Local Primary Surgeon: Bentley Rae Anesthesia Provider: Guero Bryan Emergency Department Physician: Raiza Fam Emergency Department Physician: Denise Tomlinson EBGray in mLs: 5 Complications: None Condition: Good Free Text/Narrative:: size 5/5 9mm 35x10
--- NOTE | 2019-01-12 12:52 | OR ---
DATE OF OPERATION: 01/08/2019 SURGEON: Bentley Rae MD OPERATION PERFORMED: Left total knee arthroplasty. PREOPERATIVE DIAGNOSIS: Left knee osteoarthrosis. POSTOPERATIVE DIAGNOSIS: Left knee osteoarthrosis. ANESTHESIA: General endotracheal intubation with local. ANESTHESIA PROVIDER: Guero Bryan CRNA ASSISTANTS: Raiza Fam PA-C and Denise Tomlinson LPN ESTIMATED BLOOD LOSS: 5 mL. COMPLICATIONS: None. CONDITION: Stable. IMPLANTS: 1. [place] size 5 cemented PS femur. 2. [place] size 5 cemented [place] tibial baseplate. 3. Jaciel size 5, 9 mm PS X3 polyethylene. 4. Jaciel size 35 x 10 mm cemented asymmetric patella. DESCRIPTION OF PROCEDURE: The patient was identified in the preop holding area. Proper site was marked and identified by the surgeon. The patient was taken back to the operating theater. After adequate anesthesia, the patient's left lower extremity had a nonsterile tourniquet applied and it was sterilely prepped and draped in the usual sterile fashion. OR time-out was performed. The patient received 2 g IV Ancef. At this time, the left lower extremity was exsanguinated. Tourniquet was insufflated to 300 mmHg. Standard medial parapatellar incision was made. Medial parapatellar arthrotomy was created. Deep fibers of the MCL were raised and anterior fat pad was resected. At this time, attention was turned to the patella. Patella measured 22, it was resected to a 13 for a 35 x 10 mm patella. Drill holes were then drilled and found to be in adequate position. The drill was then drilled in the distal femur and the intramedullary distal femoral cutting guide was then placed. An 8 mm was resected off the distal femur and was found to be an adequate resection. Sizing guide was placed. It was found to be a size 5 cemented PS femur that was shown on the implant record at the beginning of this dictation. The drill holes were drilled for the epicondylar axis using [place]itesides line and epicondyles as reference. At this time, the 4-in - 1 cutting block was placed. An anterior posterior and anterior and posterior chamfer cuts were then completed. Box cut was completed at this time. Attention was turned to the tibia. The posterior medial lateral retractors were placed. The extramedullary tibial guide was placed. It was placed in the old footprint of the ACL. It was aligned with the center of the ankle and 0 degrees of slope, 9 mm was then resected off the unaffected side. There was found to be an acceptable reduction. At this time, posterior osteophytes were removed along with medial and lateral meniscus. A trial implant was placed with a correct sized tibia that was mentioned at the beginning of the dictation. A [place] size 5, 9 mm PS X3 polyethylene insert was then placed. The patient's knee was brought through range of motion. The patella was tracking centrally and was stable to varus and valgus stress. Alignment was found to be roughly at 0 degrees. The tibia was stamped and drilled in proper rotation. The universal tibial base plate was impacted in place. Next, the Jaciel size 5 cemented PS femur impacted into place and the Jaciel size 5, 9 mm PS X3 polyethylene insert was placed. The patient's knee was brought into full extension. The patella was then cemented in place at this time. One liter dilute Betadine solution was irrigated through the knee along with 3 L of pulse lavage irrigation with Ancef. Periarticular injection was then completed. The patient's knee was brought through a range of motion. Once the cement had time to set up and it was found to be stable to varus valgus stress, the patella was tracking centrally with full range of motion. At this time, a #2 barbed suture was used for closure of the medial parapatellar arthrotomy. Topical tranexamic acid was placed. 2-0 Vicryl was used subcutaneously, Prineo was used for the skin. The patient tolerated the procedure well and was sent to the PACU in stable condition. JOSELYN /[id number] SHERWIN
== END 2019-01-09 12:58 | disposition home or self-care (01) | DRG 554 ==
LOC: JD.SDS 06:16 → JD.MS 12:01 → JD.SDS 16:00 → JD.MS 16:26
PROVIDERS: ADMIT Orthopaedic Surgery; ATTEND Orthopaedic Surgery
DX: M17.12 Unilateral primary osteoarthritis, left knee (principal); Z68.41 Body mass index [BMI] 40.0-44.9, adult; H54.7 Unspecified visual loss; G89.29 Other chronic pain; M54.9 Dorsalgia, unspecified; E78.5 Hyperlipidemia, unspecified; I10 Essential (primary) hypertension; F17.210 Nicotine dependence, cigarettes, uncomplicated; E78.00 Pure hypercholesterolemia, unspecified; E66.9 Obesity, unspecified; R73.9 Hyperglycemia, unspecified; D75.1 Secondary polycythemia; M85.80 Other specified disorders of bone density and structure, unspecified site; F17.200 Nicotine dependence, unspecified, uncomplicated; Z91.030 Bee allergy status; Z79.82 Long term (current) use of aspirin; Z79.899 Other long term (current) drug therapy; Z96.651 Presence of right artificial knee joint
CPT/HCPCS: 27447; 73560; 94640 ×2; 97110; 97116; 97161; A9270 ×5; C1713; C1776 ×4; J0171 ×2; J0690 ×5; J0697; J1100; J1170 ×4; J1885 ×2; J2250 ×2; J2270; J2405; J2704; J2795; J3010 ×3; J3370; J3490; J7120 ×2; 01402; 36415; 64450; 80053; 85027; 94760; 97535-GO; J7620-GY

== ENCOUNTER 2025-05-12 21:11 | Emergency (ER) | payer MEDICARE, MEDICAID, OTHER ==
[2025-05-12] MEDS ORDERED: Sodium Chloride 0.9% 10 ML Syringe FLUSH PRN (21:14)
[2025-05-12 21:31] LABS: BASOPHILS ABSOLUTE AUTO 0.1 K/mm3 (0.0-0.2); BASOPHILS PERCENT AUTO 0.3 % (0.0-1.0); EOSINOPHILS ABSOLUTE AUTO 0.1 K/mm3 (0.0-0.4); EOSINOPHILS PERCENT AUTO 0.5 % (0.0-6.0); IMMATURE GRAN ABSOLUTE AUTO 0.07 K/mm3 (0.00-0.05); IMMATURE GRAN PERCENT AUTO 0.5 % (0.0-0.4); LYMPHOCYTES ABSOLUTE AUTO 1.8 K/mm3 (1.0-4.8); LYMPHOCYTES PERCENT AUTO 11.7 % (24.0-44.0); MEAN PLATELET VOLUME 12.0 fl (9.4-12.3); MONOCYTES ABSOLUTE AUTO 0.8 K/mm3 (0.0-0.8); MONOCYTES PERCENT AUTO 4.9 % (0.0-8.0); NEUTROPHILS ABSOLUTE AUTO 12.7 K/mm3 (1.8-7.7); NEUTROPHILS PERCENT AUTO 82.1 % (41.0-71.0); NRBC ABSOLUTE 0.00 (0.00-0.02); NRBC PERCENT 0.0 % (0.0-0.2); PLATELET COUNT,PLT 249 K/mm3 (150-400); RED BLOOD CELL COUNT 4.97 M/mm3 (4.10-5.30); WHITE BLOOD CELL COUNT,WBC 15.45 K/mm3 (3.9-11.3)
[2025-05-12] MEDS: Diltiazem 25 MG/5 ML SDV IVPUSH ONE (21:37)
[2025-05-12 21:54] LABS: A/G RATIO 1.0 (1-2); ALANINE AMINOTRANSFERASE,ALT 19 U/L (14-59); ASPARTATE AMNIOTRANSFERASE,AST 21 U/L (15-37); BILIRUBIN TOTAL 0.5 mg/dL (0.2-1.0); BLOOD UREA NITROGEN,BUN 27 mg/dL (7-18); CARBON DIOXIDE,CO2 31 mEq/L (21-32); CHLORIDE,CL 98 mEq/L (98-107); CREATININE 1.5 mg/dL (0.55-1.02); ESTIMATED GFR 36 mL/min (>60); GLUCOSE RANDOM 194 mg/dL (70-99); POTASSIUM,K 3.6 mEq/L (3.5-5.1); PROTEIN TOTAL,TP 7.4 g/dl (6.4-8.2); SODIUM,NA 138 mEq/L (136-145)
[2025-05-12 22:02] LABS: TROPONIN I HIGH SENSITIVITY 67 pg/mL (<=51)
[2025-05-13 00:02] LABS: TSH 1.477 uIU/mL (0.358-3.74)
[2025-05-13] MEDS: Magnesium Sulfat/D5W 1GM/100ML 1 GM in Premix Bag 1 BAG IV ONE (02:24)
[2025-05-13 07:41] VITALS: BP 164/63; PULSE 81
== END 2025-05-13 07:36 ==
LOC: JD.ED 21:11
DX: Z79.82 Long term (current) use of aspirin (principal); I48.91 Unspecified atrial fibrillation; R79.89 Other specified abnormal findings of blood chemistry; E83.42 Hypomagnesemia; Z79.899 Other long term (current) drug therapy; Z01.89 Encounter for other specified special examinations
CPT/HCPCS: 36415; 71046; 80053; 83735; 84443; 84484; 85025; 85379; 86140; 93005; 96365; 96375; 99285; A9270; J1163; J3475; J3490

== ENCOUNTER 2025-05-26 17:32 | Emergency (ER) | payer MEDICARE, MEDICAID ==
[2025-05-26] MEDS ORDERED: Adenosine 12 MG/4 ML SDV ONE (17:46)
[2025-05-26] MEDS: Diltiazem 25 MG/5 ML SDV IVPUSH ONE (17:56)
[2025-05-26] MEDS: Sodium Chloride 0.9% 10 ML Syringe FLUSH PRN (17:56)
[2025-05-26 18:05] LABS: BASOPHILS ABSOLUTE AUTO 0.1 K/mm3 (0.0-0.2); BASOPHILS PERCENT AUTO 0.4 % (0.0-1.0); EOSINOPHILS ABSOLUTE AUTO 0.0 K/mm3 (0.0-0.4); EOSINOPHILS PERCENT AUTO 0.3 % (0.0-6.0); IMMATURE GRAN ABSOLUTE AUTO 0.04 K/mm3 (0.00-0.05); IMMATURE GRAN PERCENT AUTO 0.3 % (0.0-0.4); LYMPHOCYTES ABSOLUTE AUTO 2.1 K/mm3 (1.0-4.8); LYMPHOCYTES PERCENT AUTO 15.8 % (24.0-44.0); MEAN PLATELET VOLUME 11.8 fl (9.4-12.3); MONOCYTES ABSOLUTE AUTO 0.8 K/mm3 (0.0-0.8); MONOCYTES PERCENT AUTO 5.8 % (0.0-8.0); NEUTROPHILS ABSOLUTE AUTO 10.5 K/mm3 (1.8-7.7); NEUTROPHILS PERCENT AUTO 77.4 % (41.0-71.0); NRBC ABSOLUTE 0.00 (0.00-0.02); NRBC PERCENT 0.0 % (0.0-0.2); PLATELET COUNT,PLT 311 K/mm3 (150-400); RED BLOOD CELL COUNT 5.10 M/mm3 (4.10-5.30); WHITE BLOOD CELL COUNT,WBC 13.52 K/mm3 (3.9-11.3)
[2025-05-26 18:37] LABS: A/G RATIO 1.1 (1-2); ALANINE AMINOTRANSFERASE,ALT 23.0 U/L (14-59); ASPARTATE AMNIOTRANSFERASE,AST 20.0 U/L (15-37); BILIRUBIN TOTAL 0.7 mg/dL (0.2-1.0); BLOOD UREA NITROGEN,BUN 30.0 mg/dL (7-18); CARBON DIOXIDE,CO2 32.0 mEq/L (21-32); CHLORIDE,CL 95.0 mEq/L (98-107); CREATININE 1.4 mg/dL (0.55-1.02); EST CRCL DRUG DOSING (CG) 35.02 mL/min; ESTIMATED GFR 39.0 mL/min (>60); GLUCOSE RANDOM 157.0 mg/dL (70-99); POTASSIUM,K 4.2 mEq/L (3.5-5.1); PROTEIN TOTAL,TP 7.8 g/dl (6.4-8.2); SODIUM,NA 138.0 mEq/L (136-145); TROPONIN I HIGH SENSITIVITY 31.0 pg/mL (<=51); TSH 4.082 uIU/mL (0.358-3.74)
[2025-05-26 20:21] VITALS: BP 191/105; PULSE 98
== END 2025-05-26 19:52 | disposition home or self-care (01) ==
LOC: JD.ED 17:32
DX: I48.91 Unspecified atrial fibrillation (principal); I10 Essential (primary) hypertension; E66.9 Obesity, unspecified; Z91.030 Bee allergy status; Z79.899 Other long term (current) drug therapy; Z79.82 Long term (current) use of aspirin
CPT/HCPCS: 36415; 71045; 80053; 83735; 84443; 84484; 85025; 93005; 96374; 99285; A9270; J1163; J7030; 93010; 99284